=== PATIENT | male | born 1995 | race American Indian/Alaskan Native ===

== ENCOUNTER 2018-03-25 09:26 | Emergency (ER) | payer BC ==
[2018-03-25 09:35] VITALS: BP 142/48
--- NOTE | 2018-03-25 10:47 | Emergency Department Report ---
ED General Adult HPI - General Chief complaint: Medical Clearance Stated complaint: WEAKNESS, FATIGUE, HIV + Time Seen by Provider: 03/25/18 10:39 Source: patient Mode of arrival: Ambulatory Limitations: No Limitations - History of Present Illness Initial comments: Patient was diagnosed with HIV in 6 years ago. He has not been on any form of treatment because his partner wanted him to try homeopathic remedies. Patient has been feeling more fatigued and weak lately. He endorses a dark brown productive cough. He remembers a couple years ago by told him that his CD4 count was low. So, he comes to the ER today to get it checked out. Afebrile. Doesn't have any insurance. - Related Data Allergies Allergy/AdvReac Type Severity Reaction Status Date / Time lamotrigine [From Lamictal] Allergy Unknown Verified 03/25/18 09:35 ED Review of Systems ROS: Stated complaint: WEAKNESS, FATIGUE, HIV + Other details as noted in HPI Comment: All other systems reviewed and negative Constitutional: malaise, weakness Respiratory: cough Endocrine: denies: unexplained weight loss ED Past Medical Hx - Past Medical History Previous Medical History?: Yes Additional medical history: HIV - Social History Smoking Status: Current Every Day Smoker ED Physical Exam - General Limitations: No Limitations General appearance: alert, in no apparent distress - Head Head exam: Present: atraumatic, normocephalic - Eye Eye exam: Present: normal appearance - ENT ENT exam: Present: mucous membranes moist - Neck Neck exam: Present: normal inspection - Respiratory Respiratory exam: Present: normal lung sounds bilaterally. Absent: respiratory distress - Cardiovascular Cardiovascular Exam: Present: regular rate, normal rhythm, tachycardia. Absent : systolic murmur, diastolic murmur, rubs, gallop - GI/Abdominal GI/Abdominal exam: Present: soft, normal bowel sounds. Absent: tenderness - Rectal Rectal exam: Present: deferred - Extremities Exam Extremities exam: Present: normal inspection - Back Exam Back exam: Present: normal inspection - Neurological Exam Neurological exam: Present: alert, oriented X3 - Psychiatric Psychiatric exam: Present: normal affect, normal mood - Skin Skin exam: Present: warm, dry, intact, normal color. Absent: rash ED Course Vital Signs 03/25/18 03/25/18 09:31 10:49 Temperature 98.6 F Pulse Rate 126 H Respiratory 16 18 Rate Blood Pressure 142/48 O2 Sat by Pulse 96 Oximetry ED Medical Decision Making - Lab Data Result diagrams: 03/25/18 10:58 - Radiology Data Radiology results: report reviewed, image reviewed - Medical Decision Making 22-year-old male with past medical history of HIV presents to the ER for medical screening. Vital signs significant for heart rate of 126. This improved to 112 without intervention. Patient is well-appearing. History of HIV, but is not being followed by any physician at this point time and is not on any medication. Patient complained of a intermittent brown productive cough. Chest x-ray is unremarkable. Patient said that he was Toprol for his CD4 count was low. I am unable to order a CD4 count at this time. A screening CBC shows no evidence of leukopenia. Patient does have evidence of thrombocytopenia with a platelet count of 96,000. I would not recommend patient to the local health department for further HIV management. He has also been given referral information to the [facility]. Patient will be referred to the [facility] for further workup at this thrombocytopenia. Likely tachycardia is related to dehydration. Patient was given oral fluids in the ER for rehydration. - Differential Diagnosis sepsis, hiv, aids, PCP, dehydration, itp, ttp Critical care attestation.: If time is entered above; I have spent that time in minutes in the direct care of this critically ill patient, excluding procedure time. ED Disposition Clinical Impression: Dehydration, Thrombocytopenia Disposition: DC-01 TO HOME OR SELFCARE Is pt being admited?: No Condition: Stable Instructions: Dehydration (ED), Thrombocytopenia (ED) Additional Instructions: Please drink 1 bottle every 2 hours for the next 24 hours that you are awake. Follow up with the local health department or the [facility] for further management of your HIV. Follow up with the [facility] for further management of your low platelets. Referrals: PRIMARY CARE [Primary Care Provider] - 3-5 Days [facility] [Outside] - 3-5 Days
--- NOTE | 2018-03-25 11:03 | XRay Report ---
XRAY CHEST TWO VIEWS: 03/25/18 09:26:00 CLINICAL: Cough. COMPARISON: None FINDINGS: Normal heart and pulmonary vasculature. The lungs are normally expanded and clear except for a few tiny calcified granulomata. No airspace disease or pleural effusion.The bones and soft tissues are unremarkable. IMPRESSION: Old granulomatous disease.No acute cardiopulmonary process.
[2018-03-25 11:18] LABS: Basophils % (Auto) 0.2 % (0.0-1.8); Eosinophils # (Auto) 0.3 K/mm3 (0.0-0.4); Eosinophils % (Auto) 3.4 % (0.0-4.3); Hematocrit 44.9 % (35.5-45.6); Lymphocytes # (Auto) 1.5 K/mm3 (1.2-5.4); Lymphocytes % (Auto) 21.2 % (13.4-35.0); Mean Corpuscular HGB Conc 33 % (32-34); Mean Corpuscular Hemoglobin 28 pg (28-32); Mean Corpuscular Volume 85 fl (84-94); Monocytes # (Auto) 0.7 K/mm3 (0.0-0.8); Monocytes % (Auto) 9.4 % (0.0-7.3); Red Blood Count 5.28 M/mm3 (3.65-5.03); Red Cell Distribution Width 15.3 % (13.2-15.2)
[2018-03-25 11:19] LABS: Platelet Count 96 K/mm3 (140-440)
== END 2018-03-25 12:22 | disposition home or self-care (01) ==
LOC: ED 09:26
DX: E86.0 Dehydration (principal); D69.6 Thrombocytopenia, unspecified; F17.200 Nicotine dependence, unspecified, uncomplicated; Z88.8 Allergy status to other drugs, medicaments and biological substances
CPT/HCPCS: 36415; 71046; 85025

== ENCOUNTER 2018-03-25 19:40 | Emergency (ER) | payer BC ==
[2018-03-25 19:48] VITALS: BP 140/76
[2018-03-25 21:58] LABS: Amphetamine Screen,Urine PRESUMPTIVE NEGATIVE; Benzodiazepines Screen,Urine PRESUMPTIVE NEGATIVE; Cannabinoid Screen,Urine PRESUMPTIVE NEGATIVE; Cocaine Screen,Urine PRESUMPTIVE NEGATIVE; Methadone Screen,Urine PRESUMPTIVE NEGATIVE; Opiate Screen,Urine PRESUMPTIVE NEGATIVE
--- NOTE | 2018-03-26 00:47 | Emergency Department Report ---
ED Alcohol HPI - General Chief Complaint: Medical Clearance Stated Complaint: MEDICAL CLEARANCE Time Seen by Provider: 03/26/18 00:20 Source: patient Mode of arrival: Ambulatory Limitations: No Limitations - History of Present Illness Initial Comments: Patient sent here from [facility] for medical clearance after suspicion of alcohol intake while he was out on leave from facility, where he was currently in step down unit care after 50 days in inpatient facility under 1013 confinement for mental health issues. Patient reports that he did have half of a can of beer approximately 6 hours prior to this examination, but denies more significant alcohol intake, but denies any other recreational drug of abuse, reporting that he still feels he has the capability of drinking an alcoholic drink when he has the desire, since there is no prior history of abuse. Patient's hospitalization was for mental health issues, but he does not have a history of alcohol dependency, was not being treated for alcohol, but was simply referred because he had a presentation of alcohol, but this is generally not allowed at the facility. Patient denies other symptoms, has no physical complaints, no fever chills or diaphoresis, no falls or trauma, was not involved in any altercations, and has no other complaints. History is significant for seizure disorder, controlled with Depakote, with last seizure being 15 months earlier. He is also HIV positive. Time Since Last Drink: 6 -: hour(s) Chronic Alcohol Use: No Previous Visits for Alcohol Intoxication?: No Recent Trauma: No Associated Symptoms: denies other symptoms Treatments Prior to Arrival: none - Related Data Allergies Allergy/AdvReac Type Severity Reaction Status Date / Time lamotrigine [From Lamictal] Allergy Unknown Verified 03/25/18 20:03 ED Review of Systems ROS: Stated complaint: MEDICAL CLEARANCE Other details as noted in HPI Comment: All other systems reviewed and negative Constitutional: denies: chills, fever Eyes: denies: eye pain, eye discharge, vision change ENT: denies: ear pain, throat pain Respiratory: denies: cough, shortness of breath, wheezing Cardiovascular: denies: chest pain, palpitations Endocrine: no symptoms reported Gastrointestinal: denies: abdominal pain, nausea, diarrhea Genitourinary: denies: urgency, dysuria Musculoskeletal: denies: back pain, joint swelling, arthralgia Skin: denies: rash, lesions Neurological: denies: headache, weakness, paresthesias Psychiatric: denies: anxiety, depression Hematological/Lymphatic: denies: easy bleeding, easy bruising ED Past Medical Hx - Past Medical History Previous Medical History?: Yes Hx Seizures: Yes Hx HIV: Yes (last CD 240, not on any meds) Additional medical history: HIV - Social History Smoking Status: Current Every Day Smoker Substance Use Type: Alcohol ED Physical Exam - General Limitations: No Limitations General appearance: alert, in no apparent distress, other (does not appear intoxicated, awake and oriented, appropriate and cooperative) - Head Head exam: Present: atraumatic, normocephalic - Eye Eye exam: Present: PERRL, EOMI, nystagmus (0-1+ bilateral, bidirectional). Absent: periorbital swelling - ENT ENT exam: Present: normal exam, mucous membranes moist - Neck Neck exam: Present: normal inspection. Absent: tenderness, full ROM - Respiratory Respiratory exam: Present: normal lung sounds bilaterally. Absent: respiratory distress, wheezes, rales, rhonchi - Cardiovascular Cardiovascular Exam: Present: regular rate, normal rhythm. Absent: systolic murmur, diastolic murmur, rubs, gallop - GI/Abdominal GI/Abdominal exam: Present: soft, normal bowel sounds - Rectal Rectal exam: Present: deferred - Extremities Exam Extremities exam: Present: normal inspection - Back Exam Back exam: Present: normal inspection - Neurological Exam Neurological exam: Present: alert, oriented X3 - Psychiatric Psychiatric exam: Present: normal affect, normal mood. Absent: depressed, anxious, homicidal ideation, suicidal ideation - Skin Skin exam: Present: warm, dry, intact, normal color. Absent: rash ED Course Vital Signs 03/25/18 03/25/18 19:42 20:03 Temperature 37.0 C 37.0 C Pulse Rate 123 H 123 H Respiratory 18 18 Rate Blood Pressure 140/76 140/76 O2 Sat by Pulse 96 96 Oximetry ED Medical Decision Making - Medical Decision Making This patient is clinically stable, sent for medical evaluation, primarily because he is at a facility that monitors recreational drug use closely, but does not appear to be an active issue with this patient, who has no prior history of alcohol abuse, has a stable blood level within the legal limits, and is physically stable. He is cleared for return to his facility. Critical Care Time: No Critical care attestation.: If time is entered above; I have spent that time in minutes in the direct care of this critically ill patient, excluding procedure time. ED Disposition Clinical Impression: Medical clearance for psychiatric admission Disposition: DC-01 TO HOME OR SELFCARE Is pt being admited?: No Does the pt Need Aspirin: No Condition: Stable Additional Instructions: You're medically cleared for return to [facility]. Referrals: PRIMARY CARE, [Primary Care Provider] - 3-5 Days Time of Disposition: 00:55
== END 2018-03-26 01:06 | disposition home or self-care (01) ==
LOC: ED 19:40
DX: Z04.6 Encounter for general psychiatric examination, requested by authority (principal); Z88.8 Allergy status to other drugs, medicaments and biological substances; G40.909 Epilepsy, unspecified, not intractable, without status epilepticus; F17.200 Nicotine dependence, unspecified, uncomplicated
CPT/HCPCS: 36415; 80307; 99283; G0480; 80320

== ENCOUNTER 2018-11-21 01:36 | Emergency (ER) | payer BC ==
--- NOTE | 2018-11-21 03:29 | Emergency Department Report ---
ED Psych HPI - General Chief Complaint: Medical Clearance Stated Complaint: MED REFILL Time Seen by Provider: 11/21/18 03:18 Source: patient Mode of arrival: Ambulatory - History of Present Illness Initial Comments: Patient is 23 years old male with history of schizoaffective disorder. Patient stated that he came to the emergency room to reestablish his psychiatric medicine. Patient stated that he was out of his medicine for a period of time. Patient stated that he is taking Abilify 30 mg and Depakote 500 mg 3 times a day. Patient denied any suicidal or homicidal ideation. He denied any visual or auditory hallucination. MD Complaint: other - Related Data Allergies Allergy/AdvReac Type Severity Reaction Status Date / Time lamotrigine [From Lamictal] Allergy Unknown Verified 03/25/18 20:03 ED Review of Systems ROS: Stated complaint: MED REFILL Other details as noted in HPI Comment: All other systems reviewed and negative Constitutional: denies: chills, fever Respiratory: denies: cough Cardiovascular: denies: chest pain, palpitations, dyspnea on exertion Gastrointestinal: denies: abdominal pain, nausea, vomiting, diarrhea, constipation, hematemesis, hematochezia Musculoskeletal: denies: back pain Neurological: denies: headache, weakness Psychiatric: denies: anxiety, depression, auditory hallucinations, visual hallucinations, homicidal thoughts, suicidal thoughts ED Past Medical Hx - Past Medical History Previous Medical History?: Yes Hx Seizures: Yes Hx Psychiatric Treatment: Yes (Schizo) Hx HIV: Yes (last CD 240, not on any meds) Additional medical history: HIV. neuropathy - Surgical History Past Surgical History?: No - Social History Smoking Status: Current Every Day Smoker Substance Use Type: None ED Physical Exam - General Limitations: No Limitations General appearance: alert, in no apparent distress - Head Head exam: Present: atraumatic, normocephalic, normal inspection - Eye Eye exam: Present: normal appearance, PERRL - ENT ENT exam: Present: normal exam, normal orophraynx, mucous membranes moist - Neck Neck exam: Present: normal inspection, full ROM. Absent: tenderness, meningismus, lymphadenopathy, thyromegaly - Respiratory Respiratory exam: Present: normal lung sounds bilaterally - Cardiovascular Cardiovascular Exam: Present: regular rate, normal rhythm, normal heart sounds - GI/Abdominal GI/Abdominal exam: Present: soft, normal bowel sounds. Absent: distended, tenderness, guarding, rebound, rigid, hypoactive bowel sounds, organomegaly, mass, bruit, pulsatile mass, hernia - Extremities Exam Extremities exam: Present: normal inspection, full ROM, normal capillary refill. Absent: pedal edema, calf tenderness - Back Exam Back exam: Present: normal inspection, full ROM. Absent: tenderness, CVA tenderness (R), CVA tenderness (L), muscle spasm, paraspinal tenderness, vertebral tenderness - Neurological Exam Neurological exam: Present: alert, oriented X3, CN II-XII intact, normal gait, reflexes normal - Psychiatric Psychiatric exam: Present: normal mood - Skin Skin exam: Present: warm, intact, normal color ED Course Vital Signs 11/21/18 01:38 Temperature 97.5 F L Critical care attestation.: If time is entered above; I have spent that time in minutes in the direct care of this critically ill patient, excluding procedure time. ED Disposition Clinical Impression: Schizoaffective disorder Disposition: DC-01 TO HOME OR SELFCARE Is pt being admited?: No Condition: Stable Instructions: Schizoaffective Disorder (ED) Referrals[facility] MD TY [Primary Care Provider] - 3-5 Days
[2018-11-21 04:21] LABS: Basophils % (Auto) 0.1 % (0.0-1.8); Eosinophils # (Auto) 0.1 K/mm3 (0.0-0.4); Eosinophils % (Auto) 1.9 % (0.0-4.3); Hematocrit 41.5 % (35.5-45.6); Hemoglobin 14.2 gm/dl (11.8-15.2); Lymphocytes # (Auto) 1.8 K/mm3 (1.2-5.4); Lymphocytes % (Auto) 29.1 % (13.4-35.0); Mean Corpuscular HGB Conc 34 % (32-34); Mean Corpuscular Volume 90 fl (84-94); Monocytes # (Auto) 0.6 K/mm3 (0.0-0.8); Monocytes % (Auto) 9.7 % (0.0-7.3); Red Blood Count 4.62 M/mm3 (3.65-5.03); Red Cell Distribution Width 15.3 % (13.2-15.2)
[2018-11-21 04:34] LABS: Platelet Count 99 K/mm3 (140-440)
[2018-11-21 04:38] LABS: Bilirubin,Urine NEG (Negative); Blood,Urine NEG (Negative); Color,Urine Yellow (Yellow); Hyaline Casts,Urine 1 /LPF; Mucus,Urine 2+ /HPF
[2018-11-21 04:38] LABS: BUN/Creatinine Ratio 13; Blood Urea Nitrogen 13 mg/dL (9-20); Calcium 8.9 mg/dL (8.4-10.2); Hemolysis Index 13
[2018-11-21 04:46] LABS: Benzodiazepines Screen,Urine PRESUMPTIVE NEGATIVE; Cocaine Screen,Urine PRESUMPTIVE NEGATIVE; Methadone Screen,Urine PRESUMPTIVE NEGATIVE; Opiate Screen,Urine PRESUMPTIVE NEGATIVE
[2018-11-21 05:06] LABS: Amphetamine Screen,Urine PRESUMPTIVE POSITIVE; Cannabinoid Screen,Urine PRESUMPTIVE POSITIVE
== END 2018-11-21 11:13 | disposition home or self-care (01) ==
LOC: ED 01:36 → EEVIPCON 01:36 → ED 11:13
DX: F25.9 Schizoaffective disorder, unspecified (principal); Z76.0 Encounter for issue of repeat prescription
CPT/HCPCS: 36415; 80048; 80307; 81001; 85025; 99283; G0480; 80320

== ENCOUNTER 2018-12-06 18:42 | Emergency (ER) | payer BC ==
[2018-12-06 19:13] LABS: Basophils % (Auto) 0.3 % (0.0-1.8); Eosinophils % (Auto) 0.4 % (0.0-4.3); Hematocrit 51.6 % (35.5-45.6); Hemoglobin 16.9 gm/dl (11.8-15.2); Lymphocytes # (Auto) 1.5 K/mm3 (1.2-5.4); Mean Corpuscular HGB Conc 33 % (32-34); Mean Corpuscular Volume 91 fl (84-94); Monocytes # (Auto) 0.5 K/mm3 (0.0-0.8); Monocytes % (Auto) 7.4 % (0.0-7.3); Platelet Count 109 K/mm3 (140-440); Red Blood Count 5.66 M/mm3 (3.65-5.03)
[2018-12-06 19:31] LABS: BUN/Creatinine Ratio 12; Blood Urea Nitrogen 11 mg/dL (9-20); Calcium 9.1 mg/dL (8.4-10.2); Hemolysis Index 184
[2018-12-06 20:57] VITALS: BP 118/78
--- NOTE | 2018-12-06 21:16 | Emergency Department Report ---
ED Psych HPI - General Chief Complaint: Psych Stated Complaint: PSYCH/GENERAL SICKNESS/TREMBLES Time Seen by Provider: 12/06/18 21:00 Source: patient Mode of arrival: Ambulatory - History of Present Illness Initial Comments: Patient is 23 years old male with history of schizoaffective disorder and bipolar disorder. Patient just released from senior living. His mother called and stated that patient needed to be evaluated for psychiatric admission due to his acute psychosis. Patient with obvious visual hallucination, tactile hallucination, racing thoughts. Patient was in senior living for trespassing. Patient wanted to set his home on fire. MD Complaint: altered mental status Associated Psychiatric Symptoms: racing thoughts, auditory hallucinations, visual hallucinations Quality: constant Context: not taking psychiatric Treatments Prior to Arrival: none - Related Data Home Medications Medication Instructions Recorded Confirmed Last Taken ARIPiprazole [Abilify] 30 mg PO DAILY 12/06/18 12/06/18 12/05/18 Divalproex Sodium [Depakote] 1,500 mg PO TID 12/06/18 12/06/18 12/05/18 Gabapentin [Neurontin] 900 mg PO BID 12/06/18 12/06/18 12/05/18 Allergies Allergy/AdvReac Type Severity Reaction Status Date / Time lamotrigine [From Lamictal] Allergy Unknown Verified 03/25/18 20:03 ED Review of Systems ROS: Stated complaint: PSYCH/GENERAL SICKNESS/TREMBLES Other details as noted in HPI Comment: All other systems reviewed and negative Constitutional: denies: chills, diaphoresis, fever, malaise, weakness Respiratory: denies: cough, orthopnea, shortness of breath, SOB with exertion, SOB at rest, wheezing Cardiovascular: denies: chest pain, palpitations, dyspnea on exertion Gastrointestinal: denies: abdominal pain, nausea, vomiting, diarrhea, constipation, hematemesis, hematochezia Musculoskeletal: denies: back pain Neurological: denies: headache, weakness ED Past Medical Hx - Past Medical History Previous Medical History?: Yes Hx Seizures: Yes Hx Psychiatric Treatment: Yes (Schizo) Hx HIV: Yes (last CD 240, not on any meds) Additional medical history: HIV. neuropathy - Surgical History Past Surgical History?: No - Social History Smoking Status: Current Every Day Smoker Substance Use Type: None - Medications Home Medications: Home Medications Medication Instructions Recorded Confirmed Last Taken Type ARIPiprazole [Abilify] 30 mg PO DAILY 12/06/18 12/06/18 12/05/18 History Divalproex Sodium [Depakote] 1,500 mg PO TID 12/06/18 12/06/18 12/05/18 History Gabapentin [Neurontin] 900 mg PO BID 12/06/18 12/06/18 12/05/18 History ED Physical Exam - General Limitations: No Limitations General appearance: alert, in no apparent distress - Head Head exam: Present: atraumatic, normocephalic, normal inspection - Eye Eye exam: Present: normal appearance, PERRL - ENT ENT exam: Present: normal exam, normal orophraynx, mucous membranes moist - Neck Neck exam: Present: normal inspection, full ROM. Absent: tenderness, meningismus, lymphadenopathy, thyromegaly - Respiratory Respiratory exam: Present: normal lung sounds bilaterally. Absent: respiratory distress, wheezes, rales, rhonchi, chest wall tenderness, accessory muscle use, decreased breath sounds, prolonged expiratory - Cardiovascular Cardiovascular Exam: Present: regular rate, normal rhythm, normal heart sounds - GI/Abdominal GI/Abdominal exam: Present: soft, normal bowel sounds. Absent: distended, t enderness, guarding, rebound, rigid, organomegaly, mass, bruit, pulsatile mass, hernia - Extremities Exam Extremities exam: Present: normal inspection, full ROM, normal capillary refill - Back Exam Back exam: Present: normal inspection, full ROM. Absent: CVA tenderness (R), CVA tenderness (L), muscle spasm, paraspinal tenderness, vertebral tenderness - Neurological Exam Neurological exam: Present: alert, oriented X3, CN II-XII intact, normal gait, reflexes normal - Skin Skin exam: Present: warm, intact, normal color ED Course Vital Signs 12/06/18 19:12 Temperature 98.5 F Pulse Rate 91 H Respiratory 18 Rate Blood Pressure 118/78 [Left] O2 Sat by Pulse 99 Oximetry ED Medical Decision Making - Lab Data Result diagrams: 12/06/18 19:00 12/06/18 19:00 Critical care attestation.: If time is entered above; I have spent that time in minutes in the direct care of this critically ill patient, excluding procedure time. ED Disposition Clinical Impression: Acute psychosis Disposition: DC-01 TO HOME OR SELFCARE Is pt being admited?: No Condition: Stable Referrals: MARION FLOYD MD [Primary Care Provider] - 3-5 Days
[2018-12-06 21:32] LABS: Bilirubin,Urine NEG (Negative); Blood,Urine NEG (Negative); Color,Urine Amber (Yellow); Mucus,Urine 3+ /HPF
[2018-12-06 21:34] LABS: Amphetamine Screen,Urine PRESUMPTIVE NEGATIVE; Benzodiazepines Screen,Urine PRESUMPTIVE NEGATIVE; Cocaine Screen,Urine PRESUMPTIVE NEGATIVE; Methadone Screen,Urine PRESUMPTIVE NEGATIVE; Opiate Screen,Urine PRESUMPTIVE NEGATIVE
[2018-12-06 21:53] LABS: Cannabinoid Screen,Urine PRESUMPTIVE POSITIVE
== END 2018-12-07 00:44 | disposition home or self-care (01) ==
LOC: ED 18:42
DX: F23 Brief psychotic disorder (principal); F20.89 Other schizophrenia; F17.200 Nicotine dependence, unspecified, uncomplicated; Z88.8 Allergy status to other drugs, medicaments and biological substances
CPT/HCPCS: 36415; 80048; 80164; 80307; 81001; 82550; 85025; 99285; G0480; 80320

== ENCOUNTER 2018-12-30 23:02 | Emergency (ER) | payer BC ==
[2018-12-30 23:42] VITALS: BP 125/92
[2018-12-30 23:59] LABS: BUN/Creatinine Ratio 12; Blood Urea Nitrogen 12 mg/dL (9-20); Calcium 9.1 mg/dL (8.4-10.2); Hemolysis Index 22
[2018-12-31 00:30] LABS: Basophils % (Auto) 0.2 % (0.0-1.8); Eosinophils # (Auto) 0.2 K/mm3 (0.0-0.4); Eosinophils % (Auto) 1.5 % (0.0-4.3); Hematocrit 44.3 % (35.5-45.6); Hemoglobin 14.6 gm/dl (11.8-15.2); Lymphocytes # (Auto) 4.1 K/mm3 (1.2-5.4); Lymphocytes % (Auto) 30.4 % (13.4-35.0); Mean Corpuscular HGB Conc 33 % (32-34); Mean Corpuscular Volume 89 fl (84-94); Monocytes # (Auto) 1.4 K/mm3 (0.0-0.8); Monocytes % (Auto) 10.6 % (0.0-7.3); Platelet Count 179 K/mm3 (140-440); Red Blood Count 4.98 M/mm3 (3.65-5.03); Red Cell Distribution Width 15.3 % (13.2-15.2)
--- NOTE | 2018-12-31 01:50 | Emergency Department Report ---
Minor Respiratory - HPI Chief Complaint: Upper Respiratory Infection Stated Complaint: COLD/FLU SX/CRACKING FEET Time Seen by Provider: 12/31/18 01:44 Duration: 4 Days Severity: moderate Minor Respiratory: Yes Able to Tolerate Fluids, Yes Cough, No Rhinorrhea, No Sore Throat, No Ear Pain, No Sick Contacts, No Hemoptysis, No Chest Pain, No Shortness of Breath, No Fever Other History: 23-year-old -Citizen Of [place] male with a past medical history of HIV schizophrenia and neuropathy comes in today complaining of a cough and cracking of his feet for the last 4 days. She reports sweats and chills but denies any fever. Patient reports that he had just started back on his schizophrenia medication he is currently not on any HIV medication in the last 4 months. Patient reports he has been in and out of homelessness and has been staying at hotels. She is requesting a referral to our neurologists as he has a history of seizures and not sure if he's been having seizures are not since he has been wetting the bed. Patient reportedly is on Keppra and Depakote. ED Review of Systems ROS: Stated complaint: COLD/FLU SX/CRACKING FEET Other details as noted in HPI Constitutional: chills. denies: fever ENT: congestion. denies: ear pain, throat pain Respiratory: cough Cardiovascular: denies: chest pain, palpitations Endocrine: no symptoms reported Gastrointestinal: denies: abdominal pain, nausea, diarrhea Genitourinary: other (her Gaurav incontinence) Musculoskeletal: denies: back pain, joint swelling, arthralgia Skin: lesions (on feet) Neurological: denies: headache, weakness, paresthesias Psychiatric: anxiety, depression Hematological/Lymphatic: denies: easy bleeding, easy bruising ED Past Medical Hx - Past Medical History Previous Medical History?: Yes Hx Seizures: Yes Hx Psychiatric Treatment: Yes (Schizoaffective) Hx HIV: Yes (last CD 240, not on any meds) Additional medical history: HIV. neuropathy - Surgical History Past Surgical History?: Yes Additional Surgical History: TBI - Social History Smoking Status: Never Smoker Substance Use Type: Alcohol, Cocaine, Marijuana, Methamphetamines - Medications Home Medications: Home Medications Medication Instructions Recorded Confirmed Last Taken Type ARIPiprazole [Abilify] 30 mg PO DAILY 12/06/18 12/06/18 12/05/18 History Divalproex Sodium [Depakote] 1,500 mg PO TID 12/06/18 12/06/18 12/05/18 History Gabapentin [Neurontin] 900 mg PO BID 12/06/18 12/06/18 12/05/18 History Petrolatum,White/Lanolin [[facility] 1 applic TP TID #42.5 oint...g. 12/31/18 Unknown Rx Multi-Purpose Ointment] Sulfamethoxazole/Trimethoprim 1 each PO BID #20 tablet 12/31/18 Unknown Rx [Bactrim Ds Tablet] Minor Respiratory Exam - Exam General: Vital signs noted. No distress. Alert and acting appropriately. Neurologic: Alert and oriented, no deficits. Musculoskeletal: Unremarkable. ED Course Vital Signs 12/30/18 23:16 Temperature 98.5 F Pulse Rate 121 H Respiratory 20 Rate Blood Pressure 125/92 O2 Sat by Pulse 99 Oximetry ED Medical Decision Making - Lab Data Result diagrams: 12/30/18 23:38 12/30/18 23:38 - Radiology Data Radiology results: report reviewed Patient: AMRITA YOO MR#: [id number] : 1995 Acct:[id number] Age/Sex: 23 / M ADM Date: 12/30/18 Loc: ED Attending Dr: Ordering Physician: MOE PAT MD Date of Service: 12/30/18 Procedure(s): XR chest 1V ap Accession Number(s): [id number] cc: MOE PAT MD Fluoro Time In Minutes: PROCEDURE: XR CHEST 1V AP TECHNIQUE: Chest radiograph single view. HISTORY: Chest Pain COMPARISONS: April 24, 2018 . FINDINGS: Heart: Normal. Mediastinum/Vessels: Normal. Lungs/Pleural space: Normal. Bony thorax: No acute osseous abnormality. Life support devices: None. IMPRESSION: No acute cardiopulmonary abnormality. This document is electronically signed by Sebastian Monaco MD., December 31 2018 02:17:06 AM ET Transcribed By: CO Dictated By: SEBASTIAN MONACO MD Electronically Authenticated By: SEBASTIAN MONACO MD Signed Date/Time: 12/31/18 0219 DD/ 0006 - Medical Decision Making Patient has been evaluated by this provider in [facility]. Chest x-ray shows normal examination Discussed patient to follow-up with Dr. amaya for his HIV, neurologist for his seizure disorders. I will place patient on Bactrim double strength 1 tablet by mouth twice a day since he is immune compromised and comes in with a cough and has not been on medication for his HIV for the last 4 months. Critical care attestation.: If time is entered above; I have spent that time in minutes in the direct care of this critically ill patient, excluding procedure time. ED Disposition Clinical Impression: Cough, HIV disease Disposition: - TO HOME OR SELFCARE Is pt being admited?: No Does the pt Need Aspirin: No Condition: Stable Instructions: Upper Respiratory Infection (ED) Additional Instructions: Please complete antibiotics as prescribed. Use your Vaseline/petroleum jelly on both her feet or E times a day and follow-up with this but specialist. Please be sure to take all your chronic medications as prescribed. I would like for you to follow up with a neurologist clear history of seizures as well as Dr. amaya infectious disease. Immune compromise diagnosis. Prescriptions: Sulfamethoxazole/Trimethoprim [Bactrim Ds Tablet] 1 each PO BID #20 tablet Petrolatum,White/Lanolin [[facility] Multi-Purpose Ointment] 1 applic TP TID #42.5 oint...g. Referrals: PRIMARY CAREMD [Primary Care Provider] - 3-5 Days CJ AMAYA MD [Staff Physician] - 3-5 Days [facility] [Provider Group] - 3-5 Days
--- NOTE | 2018-12-31 02:19 | XRay Report ---
PROCEDURE: XR CHEST 1V AP TECHNIQUE: Chest radiograph single view. HISTORY: Chest Pain COMPARISONS: April 24, 2018 . FINDINGS: Heart: Normal. Mediastinum/Vessels: Normal. Lungs/Pleural space: Normal. Bony thorax: No acute osseous abnormality. Life support devices: None. IMPRESSION: No acute cardiopulmonary abnormality. This document is electronically signed by Sebastian Shannon MD., December 31 2018 02:17:06 AM ET
== END 2018-12-31 02:30 | disposition home or self-care (01) ==
LOC: ED 23:02
DX: R05 Cough (principal); R61 Generalized hyperhidrosis; R68.83 Chills (without fever); B20 Human immunodeficiency virus [HIV] disease; F20.9 Schizophrenia, unspecified; F15.90 Other stimulant use, unspecified, uncomplicated; F12.90 Cannabis use, unspecified, uncomplicated; G62.9 Polyneuropathy, unspecified; Z88.8 Allergy status to other drugs, medicaments and biological substances
CPT/HCPCS: 36415; 71045; 80048; 85025; 99284

== ENCOUNTER 2019-01-01 12:15 | Emergency (ER) | payer BC ==
--- NOTE | 2019-01-01 12:27 | Emergency Department Report ---
Blank Doc - Documentation Documentation: This is a 23-year-old male that presents with URI symptoms. Was seen 2 days ago and was given prescrption but did not fill it. Is requesting for healthcare social worker for funding for medications. This initial assessment/diagnostic orders/clinical plan/treatment(s) is/are subject to change based on patient's health status, clinical progression and re- assessment by fellow clinical providers in the ED. Further treatment and workup at subsequent clinical providers discretion. Patient/guardians urged not to elope from the ED as their condition may be serious if not clinically assessed and managed. Initial orders include: 1- Patient sent to [facility] for further evaluation and treatment 2- bilingual social worker for consult
[2019-01-01 12:28] VITALS: BP 125/83
--- NOTE | 2019-01-01 18:09 | Emergency Department Report ---
Chief Complaint: Upper Respiratory Infection Stated Complaint: POSS UPPER RESPIRATORY/MED REFILL Time Seen by Provider: 01/01/19 12:25 - HPI History of Present Illness: This is a 23-year-old male who returns to the ED seeking help for his medication refill. Patient states he is unable to afford his medications that he was prescribed 2 days ago. Patient states having similar symptoms that started days . Patient is not exhibiting any new symptoms at this time. - ROS Review of Systems: As noted in HPI. Denies all systems - Exam Vital Signs: Vital Signs 01/01/19 12:24 Temperature 98.2 F Pulse Rate 120 H Respiratory 18 Rate Blood Pressure 125/83 O2 Sat by Pulse 99 Oximetry Physical Exam: Patient is in no acute distress. Patient is alert and active 3. He is able to communicate in clear sentences, no neurological deficit. Lung sounds clear bilaterally. MSE screening note: Focused history and physical exam performed. Due to findings the following was ordered: ED Medical Decision Making - Medical Decision Making 23-year-old male presents for medication refill Discussed with patient that he can use [facility] that has Bactrim on their free least. Patient told to call police to get his medication for free. I have also given patient's a couple of good iris cards to help with this plan of medication he needs. Patient understands instructions and states will follow. ED Disposition for MSE Clinical Impression: Medication refill Disposition: DC-01 TO HOME OR SELFCARE Is pt being admited?: No Does the pt Need Aspirin: No Condition: Stable Additional Instructions: Make sure to follow up with the primary care physician as discussed. Take all your medications as you've been prescribed. If you have any worsening symptoms or develop new symptoms please return to ED immediately. Prescriptions: Sulfamethoxazole/Trimethoprim [Bactrim Ds Tablet] 1 each PO BID #20 tablet Petrolatum,White/Lanolin [[facility] Multi-Purpose Ointment] 1 applic TP TID #42.5 oint...g. Referrals: [facility] MD TY [Primary Care Provider] - 3-5 Days Forms: Work/School Release Form(ED) Time of Disposition: 18:10
== END 2019-01-01 18:24 | disposition home or self-care (01) ==
LOC: ED 12:15
DX: J06.9 Acute upper respiratory infection, unspecified (principal); Z76.0 Encounter for issue of repeat prescription
CPT/HCPCS: 99282

== ENCOUNTER 2019-01-03 02:38 | Emergency (ER) | payer BC ==
[2019-01-03 03:29] VITALS: BP 128/80
[2019-01-03 03:33] LABS: Basophils % (Auto) 0.3 % (0.0-1.8); Eosinophils # (Auto) 0.1 K/mm3 (0.0-0.4); Eosinophils % (Auto) 1.5 % (0.0-4.3); Hematocrit 40.3 % (35.5-45.6); Hemoglobin 13.2 gm/dl (11.8-15.2); Lymphocytes # (Auto) 3.4 K/mm3 (1.2-5.4); Lymphocytes % (Auto) 43.4 % (13.4-35.0); Mean Corpuscular HGB Conc 33 % (32-34); Mean Corpuscular Volume 90 fl (84-94); Monocytes # (Auto) 0.8 K/mm3 (0.0-0.8); Monocytes % (Auto) 10.7 % (0.0-7.3); Platelet Count 142 K/mm3 (140-440); Red Blood Count 4.51 M/mm3 (3.65-5.03); Red Cell Distribution Width 14.6 % (13.2-15.2)
[2019-01-03 03:56] LABS: BUN/Creatinine Ratio 6; Blood Urea Nitrogen 5 mg/dL (9-20); Calcium 8.8 mg/dL (8.4-10.2); Hemolysis Index 17
[2019-01-03 04:23] LABS: Bilirubin,Urine NEG (Negative); Blood,Urine NEG (Negative); Color,Urine Yellow (Yellow); Mucus,Urine FEW /HPF; Protein,Urine <15 mg/dL mg/dL (Negative)
[2019-01-03 04:31] LABS: Amphetamine Screen,Urine PRESUMPTIVE NEGATIVE; Benzodiazepines Screen,Urine PRESUMPTIVE NEGATIVE; Cannabinoid Screen,Urine PRESUMPTIVE NEGATIVE; Cocaine Screen,Urine PRESUMPTIVE NEGATIVE; Methadone Screen,Urine PRESUMPTIVE NEGATIVE; Opiate Screen,Urine PRESUMPTIVE NEGATIVE
[2019-01-03] MEDS ORDERED: K-DUR PO ONE (04:43)
--- NOTE | 2019-01-03 06:44 | Emergency Department Report ---
HPI - General Chief Complaint: Psych Time Seen by Provider: 01/03/19 06:07 - HPI HPI: 23-year-old -[place] male presents to the emergency department with complaint of having some episodes of jack for the past 24+ hours. He thinks that he has been set off by the copious amount of energy drinks and caffeine that he has been having. 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 He says occasionally he will have some hallucinations. Currently he just feels a "buzz" and he denies any suicidal or homicidal ideations. [facility] is [facility]30 AM until 3:30 PM each day. He has not been getting much sleep and therefore starts using the caffeinated products. ED Past Medical Hx - Past Medical History Previous Medical History?: Yes Hx Seizures: Yes Hx Psychiatric Treatment: Yes (Schizoaffective,drug abuse) Hx HIV: Yes (last , not on any meds) Additional medical history: HIV. neuropathy - Surgical History Additional Surgical History: TBI - Social History Smoking Status: Never Smoker Substance Use Type: Alcohol, Cocaine, Heroin, Marijuana, Methamphetamines - Medications Home Medications: Home Medications Medication Instructions Recorded Confirmed Last Taken Type ARIPiprazole [Abilify] 30 mg PO DAILY 12/06/18 12/06/18 12/05/18 History Divalproex Sodium [Depakote] 1,500 mg PO TID 12/06/18 12/06/18 12/05/18 History Gabapentin [Neurontin] 900 mg PO BID 12/06/18 12/06/18 12/05/18 History Petrolatum,White/Lanolin [[facility] 1 applic TP TID #42.5 oint...g. 01/01/19 Unknown Rx Multi-Purpose Ointment] Sulfamethoxazole/Trimethoprim 1 each PO BID #20 tablet 01/01/19 Unknown Rx [Bactrim Ds Tablet] ED Review of Systems ROS: Stated complaint: PAIN MH Other details as noted in HPI Comment: All other systems reviewed and negative Constitutional: denies: chills, fever Eyes: denies: eye pain, vision change ENT: denies: ear pain, throat pain Respiratory: denies: cough, shortness of breath Cardiovascular: denies: chest pain, palpitations Gastrointestinal: denies: abdominal pain, vomiting Genitourinary: denies: urgency, dysuria Musculoskeletal: denies: back pain, arthralgia Skin: denies: rash, lesions Neurological: denies: headache, numbness Psychiatric: denies: homicidal thoughts, suicidal thoughts Physical Exam - Physical Exam Vital Signs: Vital Signs 01/03/19 01/03/19 02:45 03:28 Temperature 98.1 F 98.9 F Pulse Rate 118 H 113 H Respiratory 20 18 Rate Blood Pressure 148/84 Blood Pressure 128/80 [Right] O2 Sat by Pulse 100 96 Oximetry Physical Exam: GENERAL: The patient is well-developed well-nourished. HEENT: Normocephalic. Atraumatic. Patient has moist mucous membranes. EYES: Extraocular motions are intact. NECK: Supple. Trachea is midline. CHEST/LUNGS: Clear to auscultation. There is no respiratory distress noted. HEART/CARDIOVASCULAR: Regular. There is mild tachycardia. There is no obvious murmur. ABDOMEN: Abdomen is soft, nontender. Patient has normal bowel sounds. There is no abdominal distention. SKIN: Skin is warm and dry. NEURO: The patient is awake, alert, and oriented. The patient is cooperative. The patient has no focal neurologic deficits. The patient has normal speech. MUSCULOSKELETAL: There is no tenderness or deformity. There is no limitation range of motion. There is no evidence of acute injury. PSYCHIATRIC: Patient has slightly pressured speech but otherwise is cooperative and appropriate. ED Course Vital Signs 01/03/19 01/03/19 02:45 03:28 Temperature 98.1 F 98.9 F Pulse Rate 118 H 113 H Respiratory 20 18 Rate Blood Pressure 148/84 Blood Pressure 128/80 [Right] O2 Sat by Pulse 100 96 Oximetry ED Medical Decision Making - Lab Data Result diagrams: 01/03/19 02:54 01/03/19 02:54 - Medical Decision Making This patient presents to the emergency department with the complaint of some manic behavior over the past 24-48 hours. He admits that it may be due to heavy caffeine intake but he denies any illicit drug use recently. The patient started getting psychiatric treatment and a partial hospitalization program at [facility]. He denies any suicidal or homicidal ideations or any current hallucinations. He does not appear to meet criteria to meet a 1013 or 14 inpatient involuntary psychiatric admission. He was seen by the psychiatric secure software assessor, Adryan, who agrees with this. The patient has been instructed to return to the emergency department for any worsening of his symptoms, thoughts of harming himself or others, or if any acute distress. - Differential Diagnosis bipolar disorder, schizophrenia, schizoaffective, substance abuse Critical Care Time: No Critical care attestation.: If time is entered above; I have spent that time in minutes in the direct care of this critically ill patient, excluding procedure time. ED Disposition Clinical Impression: Manic episode, History of schizoaffective disorder, History of bipolar disorder Disposition: DC-01 TO HOME OR SELFCARE Is pt being admited?: No Condition: Stable Instructions: Bipolar Disorder (ED), Schizoaffective Disorder (ED) Additional Instructions: Please continue your partial hospitalization program. Try to stay away from energy drinks and caffeinated products. Return to the emergency Department with any worsening of your symptoms, thoughts of harming yourself or others, any acute distress. Continue taking your medications as prescribed. Referrals: ABDIAS Ortega [Provider Group] - [facility] Time of Disposition: 07:09
== END 2019-01-03 07:00 | disposition home or self-care (01) ==
LOC: ED 02:38
DX: F30.9 Manic episode, unspecified (principal); F25.9 Schizoaffective disorder, unspecified; F14.10 Cocaine abuse, uncomplicated; F12.10 Cannabis abuse, uncomplicated; F11.20 Opioid dependence, uncomplicated; F15.10 Other stimulant abuse, uncomplicated; Z88.8 Allergy status to other drugs, medicaments and biological substances
CPT/HCPCS: 36415; 80048; 80307; 81001; 83735; 85025; 99284; G0480; 80320

== ENCOUNTER 2019-01-05 02:06 | Emergency (ER) | payer BC ==
[2019-01-05 02:17] VITALS: BP 128/83
--- NOTE | 2019-01-05 03:35 | Emergency Department Report ---
ED Extremity Problem HPI - General Chief complaint: Extremity Injury, Lower Stated complaint: PAIN IN FEET/LOWER EXTREMITIES, THUY Time Seen by Provider: 01/05/19 03:35 Source: patient Mode of arrival: Ambulatory Limitations: No Limitations - History of Present Illness Severity scale (0 -10): 7 - Related Data Home Medications Medication Instructions Recorded Confirmed Last Taken ARIPiprazole [Abilify] 30 mg PO DAILY 12/06/18 12/06/18 12/05/18 Divalproex Sodium [Depakote] 1,500 mg PO TID 12/06/18 12/06/18 12/05/18 Gabapentin [Neurontin] 900 mg PO BID 12/06/18 12/06/18 12/05/18 Previous Rx's Medication Instructions Recorded Last Taken Type Petrolatum,White/Lanolin [[facility] 1 applic TP TID #42.5 oint...g. 01/01/19 Unknown Rx Multi-Purpose Ointment] Sulfamethoxazole/Trimethoprim 1 each PO BID #20 tablet 01/01/19 Unknown Rx [Bactrim Ds Tablet] Allergies Allergy/AdvReac Type Severity Reaction Status Date / Time lamotrigine [From Lamictal] Allergy Unknown Verified 03/25/18 20:03 ED Review of Systems ROS: Stated complaint: PAIN IN FEET/LOWER EXTREMITIES, THUY Other details as noted in HPI ED Past Medical Hx - Past Medical History Previous Medical History?: Yes Hx Seizures: Yes Hx Psychiatric Treatment: Yes (Schizoaffective,drug abuse) Hx HIV: Yes (last CD 24, not on any meds) Additional medical history: HIV. neuropathy - Surgical History Past Surgical History?: Yes Additional Surgical History: TBI - Social History Smoking Status: Never Smoker Substance Use Type: None - Medications Home Medications: Home Medications Medication Instructions Recorded Confirmed Last Taken Type ARIPiprazole [Abilify] 30 mg PO DAILY 12/06/18 12/06/18 12/05/18 History Divalproex Sodium [Depakote] 1,500 mg PO TID 12/06/18 12/06/18 12/05/18 History Gabapentin [Neurontin] 900 mg PO BID 12/06/18 12/06/18 12/05/18 History Petrolatum,White/Lanolin [[facility] 1 applic TP TID #42.5 oint...g. 01/01/19 Unknown Rx Multi-Purpose Ointment] Sulfamethoxazole/Trimethoprim 1 each PO BID #20 tablet 01/01/19 Unknown Rx [Bactrim Ds Tablet] ED Physical Exam - General Limitations: No Limitations ED Course Vital Signs 01/05/19 02:15 Temperature 98.5 F Pulse Rate 100 H Respiratory 16 Rate Blood Pressure 128/83 O2 Sat by Pulse 97 Oximetry Critical care attestation.: If time is entered above; I have spent that time in minutes in the direct care of this critically ill patient, excluding procedure time. ED Disposition Condition: Stable Referrals: DASHA ZEPEDA MD [Primary Care Provider] - 3-5 Days
== END 2019-01-05 03:40 | disposition left against medical advice (07) ==
LOC: ED 02:06
DX: M79.673 Pain in unspecified foot (principal); Z53.21 Procedure and treatment not carried out due to patient leaving prior to being seen by health care provider

== ENCOUNTER 2019-03-08 00:07 | Emergency (ER) | payer BC, MEDICAID ==
[2019-03-08 01:16] LABS: Basophils % (Auto) 0.2 % (0.0-1.8); Eosinophils # (Auto) 0.1 K/mm3 (0.0-0.4); Eosinophils % (Auto) 1.8 % (0.0-4.3); Hemoglobin 15.1 gm/dl (11.8-15.2); Lymphocytes # (Auto) 2.2 K/mm3 (1.2-5.4); Lymphocytes % (Auto) 41.8 % (13.4-35.0); Mean Corpuscular HGB Conc 34 % (32-34); Mean Corpuscular Volume 88 fl (84-94); Monocytes # (Auto) 0.5 K/mm3 (0.0-0.8); Monocytes % (Auto) 8.5 % (0.0-7.3); Platelet Count 132 K/mm3 (140-440); Red Blood Count 5.13 M/mm3 (3.65-5.03); Red Cell Distribution Width 13.9 % (13.2-15.2)
--- NOTE | 2019-03-08 01:32 | XRay Report ---
EXAM: XR CHEST ROUTINE 2V HISTORY: cough TECHNIQUE: PA and lateral chest x-ray dated March 08, 2019 at 12:52 AM. COMPARISON: None available. FINDINGS: The heart size and mediastinum are within normal limits. The lung jacques and costophrenic angles are clear. There is no acute parenchymal infiltrate, pleural effusion, or pneumothorax seen. The visua lized bony structures are within normal limits. IMPRESSION: 1. No evidence for acute cardiopulmonary disease seen. This document is electronically signed by Chaz Giordano MD., March 08 2019 01:30:28 AM ET
[2019-03-08 01:35] LABS: BUN/Creatinine Ratio 15; Blood Urea Nitrogen 15 mg/dL (9-20); Calcium 9.5 mg/dL (8.4-10.2); Hemolysis Index 6
[2019-03-08 02:17] LABS: Bilirubin,Urine NEG (Negative); Blood,Urine NEG (Negative); Color,Urine Yellow (Yellow); Protein,Urine <15 mg/dL mg/dL (Negative)
[2019-03-08 02:56] LABS: Amphetamine Screen,Urine PRESUMPTIVE POSITIVE; Cannabinoid Screen,Urine PRESUMPTIVE POSITIVE
[2019-03-08 03:42] LABS: Benzodiazepines Screen,Urine PRESUMPTIVE NEGATIVE; Cocaine Screen,Urine PRESUMPTIVE NEGATIVE; Methadone Screen,Urine PRESUMPTIVE NEGATIVE; Opiate Screen,Urine PRESUMPTIVE NEGATIVE
--- NOTE | 2019-03-08 05:03 | Emergency Department Report ---
ED General Adult HPI - General Chief complaint: Upper Respiratory Infection Stated complaint: COUGH/COLD SYMPTOMS Time Seen by Provider: 03/08/19 03:34 Source: patient, RN notes reviewed, old records reviewed Mode of arrival: Ambulatory Limitations: No Limitations - History of Present Illness Initial comments: This is a 23-year-old gentleman. The patient is not known to this provider previously. The patient presents to the emergency room with multiple complaints. The first complaint is cough, mucus production. His has been going on for a few weeks. It is painless. It does not radiate anywhere and does not have exacerbating or relieving factors. Patient reports that he smokes "basically everything." This includes tobacco, methamphetamines, weed, and K3 synthetics. The patient is not interested in tobacco cessation at this time. The patient has no headache, neck pain, chest pain, abdominal pain, shortness of breath or urinary symptoms. He is not homicidal or suicidal. He also requests refill of his psychiatric medications. However, he states that he is "plugged in" with the [facility] team and that " I can follow up with them whenever I want." -: week(s), month(s) Consistency: constant Improves with: none Worsens with: none Associated Symptoms: denies other symptoms - Related Data Home Medications Medication Instructions Recorded Confirmed Last Taken ARIPiprazole [Abilify] 30 mg PO DAILY 12/06/18 12/06/18 12/05/18 Divalproex Sodium [Depakote] 1,500 mg PO TID 12/06/18 12/06/18 12/05/18 Gabapentin [Neurontin] 900 mg PO BID 12/06/18 12/06/18 12/05/18 Previous Rx's Medication Instructions Recorded Last Taken Type Petrolatum,White/Lanolin [[facility] 1 applic TP TID #42.5 oint...g. 01/01/19 Unknown Rx Multi-Purpose Ointment] Sulfamethoxazole/Trimethoprim 1 each PO BID #20 tablet 01/01/19 Unknown Rx [Bactrim Ds Tablet] Allergies Allergy/AdvReac Type Severity Reaction Status Date / Time lamotrigine [From Lamictal] Allergy Unknown Verified 03/25/18 20:03 ED Review of Systems ROS: Stated complaint: COUGH/COLD SYMPTOMS Other details as noted in HPI Constitutional: denies: fever Eyes: denies: eye discharge ENT: congestion. denies: epistaxis Respiratory: cough Cardiovascular: denies: chest pain Gastrointestinal: denies: abdominal pain Musculoskeletal: denies: back pain Skin: denies: lesions Neurological: denies: weakness Psychiatric: denies: homicidal thoughts, suicidal thoughts ED Past Medical Hx - Past Medical History Previous Medical History?: Yes Hx Seizures: Yes Hx Psychiatric Treatment: Yes (Schizoaffective,drug abuse) Hx HIV: Yes (last CD 24, not on any meds) Additional medical history: HIV. neuropathy - Surgical History Past Surgical History?: Yes Additional Surgical History: TBI - Social History Smoking Status: Current Every Day Smoker Substance Use Type: Marijuana - Medications Home Medications: Home Medications Medication Instructions Recorded Confirmed Last Taken Type ARIPiprazole [Abilify] 30 mg PO DAILY 12/06/18 12/06/18 12/05/18 History Divalproex Sodium [Depakote] 1,500 mg PO TID 12/06/18 12/06/18 12/05/18 History Gabapentin [Neurontin] 900 mg PO BID 12/06/18 12/06/18 12/05/18 History Petrolatum,White/Lanolin [[facility] 1 applic TP TID #42.5 oint...g. 01/01/19 Unknown Rx Multi-Purpose Ointment] Sulfamethoxazole/Trimethoprim 1 each PO BID #20 tablet 01/01/19 Unknown Rx [Bactrim Ds Tablet] ED Physical Exam - General Limitations: No Limitations General appearance: alert, in no apparent distress - Head Head exam: Present: atraumatic, normocephalic - Eye Eye exam: Present: normal appearance, EOMI. Absent: nystagmus - ENT ENT exam: Present: normal exam, normal orophraynx, mucous membranes moist, normal external ear exam - Neck Neck exam: Present: normal inspection, full ROM. Absent: tenderness, meningismus - Respiratory Respiratory exam: Present: normal lung sounds bilaterally. Absent: respiratory distress - Cardiovascular Cardiovascular Exam: Present: regular rate, normal rhythm, normal heart sounds. Absent: bradycardia, tachycardia, irregular rhythm, systolic murmur, diastolic murmur, rubs, gallop - GI/Abdominal GI/Abdominal exam: Present: soft. Absent: distended, tenderness, guarding, rebound, rigid, pulsatile mass - Rectal Rectal exam: Present: deferred - Extremities Exam Extremities exam: Present: normal inspection, full ROM, other (2+ pulses noted in the bilateral upper, lower extremities. Compartments soft. No long bony tenderness. The pelvis is stable.). Absent: tenderness, pedal edema, joint swelling, calf tenderness - Back Exam Back exam: Present: normal inspection, full ROM. Absent: tenderness, CVA tenderness (R), CVA tenderness (L), paraspinal tenderness, vertebral tenderness - Neurological Exam Neurological exam: Present: alert, oriented X3, normal gait, other (Extraocular movements intact. Tongue midline. No facial droop. Facial sensation intact to light touch in the V1, V2, V3 distribution bilaterally. 5 and 5 strength in 4 extremities.. Sensation is intact to light touch in 4 extremities.). Absent: motor sensory deficit - Psychiatric Psychiatric exam: Present: anxious. Absent: homicidal ideation, suicidal ideation - Skin Skin exam: Present: warm, dry, intact, normal color. Absent: rash ED Course Vital Signs 03/08/19 00:30 Temperature 97.8 F Pulse Rate 91 H Respiratory 18 Rate Blood Pressure 112/71 O2 Sat by Pulse 98 Oximetry ED Medical Decision Making - Lab Data Result diagrams: 03/08/19 01:03 03/08/19 01:03 Vital Signs 03/08/19 00:30 Temperature 97.8 F Pulse Rate 91 H Respiratory 18 Rate Blood Pressure 112/71 O2 Sat by Pulse 98 Oximetry Lab Results 03/08/19 03/08/19 03/08/19 Range/Units 01:03 01:03 01:03 WBC (4.5-11.0) K/mm3 RBC (3.65-5.03) M/mm3 Hgb (11.8-15.2) gm/dl Hct (35.5-45.6) % MCV (84-94) fl MCH (28-32) pg MCHC (32-34) % RDW (13.2-15.2) % Plt Count (140-440) K/mm3 Lymph % (Auto) (13.4-35.0) % [place] % (Auto) (0.0-7.3) % Eos % (Auto) (0.0-4.3) % Baso % (Auto) (0.0-1.8) % Lymph # (1.2-5.4) K/mm3 [place] # (0.0-0.8) K/mm3 Eos # (0.0-0.4) K/mm3 Baso # (0.0-0.1) K/mm3 Seg Neutrophils % (40.0-70.0) % Seg Neutrophils # (1.8-7.7) K/mm3 Sodium 138 (137-145) mmol/L Potassium 3.9 (3.6-5.0) mmol/L Chloride 97.9 L (98-107) mmol/L Carbon Dioxide 29 (22-30) mmol/L Anion Gap 15 mmol/L BUN 15 (9-20) mg/dL Creatinine 1.0 (0.8-1.5) mg/dL Estimated GFR > 60 ml/min BUN/Creatinine Ratio 15 % Glucose 104 H (75-100) mg/dL Calcium 9.5 (8.4-10.2) mg/dL Urine Color (Yellow) Urine Turbidity (Clear) Urine pH (5.0-7.0) Ur Specific [place] (1.003-1.030) Urine Protein (Negative) mg/dL Urine Glucose (UA) (Negative) mg/dL Urine Ketones (Negative) mg/dL Urine Blood (Negative) Urine Nitrite (Negative) Urine Bilirubin (Negative) Urine Urobilinogen (<2.0) mg/dL Ur Leukocyte Esterase (Negative) Urine WBC (Auto) (0.0-6.0) /HPF Urine RBC (Auto) (0.0-6.0) /HPF Salicylates < 0.3 L (2.8-20.0) mg/dL Urine Opiates Screen Urine Methadone Screen Acetaminophen < 5.0 L (10.0-30.0) ug/mL Ur Barbiturates Screen Valproic Acid (50-100) ug/mL Ur Phencyclidine Scrn Ur Amphetamines Screen U Benzodiazepines Scrn Urine Cocaine Screen U Marijuana (THC) Screen Drugs of Abuse Note Plasma/Serum Alcohol (0-0.07) % 03/08/19 03/08/19 03/08/19 Range/Units 01:03 01:03 01:03 WBC 5.3 (4.5-11.0) K/mm3 RBC 5.13 H (3.65-5.03) M/mm3 Hgb 15.1 (11.8-15.2) gm/dl Hct 45.0 (35.5-45.6) % MCV 88 (84-94) fl MCH 30 (28-32) pg MCHC 34 (32-34) % RDW 13.9 (13.2-15.2) % Plt Count 132 L (140-440) K/mm3 Lymph % (Auto) 41.8 H (13.4-35.0) % [place] % (Auto) 8.5 H (0.0-7.3) % Eos % (Auto) 1.8 (0.0-4.3) % Baso % (Auto) 0.2 (0.0-1.8) % Lymph # 2.2 (1.2-5.4) K/mm3 [place] # 0.5 (0.0-0.8) K/mm3 Eos # 0.1 (0.0-0.4) K/mm3 Baso # 0.0 (0.0-0.1) K/mm3 Seg Neutrophils % 47.7 (40.0-70.0) % Seg Neutrophils # 2.5 (1.8-7.7) K/mm3 Sodium (137-145) mmol/L Potassium (3.6-5.0) mmol/L Chloride (98-107) mmol/L Carbon Dioxide (22-30) mmol/L Anion Gap mmol/L BUN (9-20) mg/dL Creatinine (0.8-1.5) mg/dL Estimated GFR ml/min BUN/Creatinine Ratio % Glucose (75-100) mg/dL Calcium (8.4-10.2) mg/dL Urine Color (Yellow) Urine Turbidity (Clear) Urine pH (5.0-7.0) Ur Specific [place] (1.003-1.030) Urine Protein (Negative) mg/dL Urine Glucose (UA) (Negative) mg/dL Urine Ketones (Negative) mg/dL Urine Blood (Negative) Urine Nitrite (Negative) Urine Bilirubin (Negative) Urine Urobilinogen (<2.0) mg/dL Ur Leukocyte Esterase (Negative) Urine WBC (Auto) (0.0-6.0) /HPF Urine RBC (Auto) (0.0-6.0) /HPF Salicylates (2.8-20.0) mg/dL Urine Opiates Screen Urine Methadone Screen Acetaminophen (10.0-30.0) ug/mL Ur Barbiturates Screen Valproic Acid < 2.8 L (50-100) ug/mL Ur Phencyclidine Scrn Ur Amphetamines Screen U Benzodiazepines Scrn Urine Cocaine Screen U Marijuana (THC) Screen Drugs of Abuse Note Plasma/Serum Alcohol < 0.01 (0-0.07) % 03/08/19 03/08/19 Range/Units 02:35 Unknown WBC (4.5-11.0) K/mm3 RBC (3.65-5.03) M/mm3 Hgb (11.8-15.2) gm/dl Hct (35.5-45.6) % MCV (84-94) fl MCH (28-32) pg MCHC (32-34) % RDW (13.2-15.2) % Plt Count (140-440) K/mm3 Lymph % (Auto) (13.4-35.0) % [place] % (Auto) (0.0-7.3) % Eos % (Auto) (0.0-4.3) % Baso % (Auto) (0.0-1.8) % Lymph # (1.2-5.4) K/mm3 [place] # (0.0-0.8) K/mm3 Eos # (0.0-0.4) K/mm3 Baso # (0.0-0.1) K/mm3 Seg Neutrophils % (40.0-70.0) % Seg Neutrophils # (1.8-7.7) K/mm3 Sodium (137-145) mmol/L Potassium (3.6-5.0) mmol/L Chloride (98-107) mmol/L Carbon Dioxide (22-30) mmol/L Anion Gap mmol/L BUN (9-20) mg/dL Creatinine (0.8-1.5) mg/dL Estimated GFR ml/min BUN/Creatinine Ratio % Glucose (75-100) mg/dL Calcium (8.4-10.2) mg/dL Urine Color Yellow (Yellow) Urine Turbidity Clear (Clear) Urine pH 6.0 (5.0-7.0) Ur Specific [place] 1.010 (1.003-1.030) Urine Protein <15 mg/dl (Negative) mg/dL Urine Glucose (UA) Neg (Negative) mg/dL Urine Ketones Neg (Negative) mg/dL Urine Blood Neg (Negative) Urine Nitrite Neg (Negative) Urine Bilirubin Neg (Negative) Urine Urobilinogen 2.0 (<2.0) mg/dL Ur Leukocyte Esterase Neg (Negative) Urine WBC (Auto) 2.0 (0.0-6.0) /HPF Urine RBC (Auto) 2.0 (0.0-6.0) /HPF Salicylates (2.8-20.0) mg/dL Urine Opiates Screen Presumptive negative Urine Methadone Screen Presumptive negative Acetaminophen (10.0-30.0) ug/mL Ur Barbiturates Screen Presumptive negative Valproic Acid (50-100) ug/mL Ur Phencyclidine Scrn Presumptive negative Ur Amphetamines Screen Presumptive positive U Benzodiazepines Scrn Presumptive negative Urine Cocaine Screen Presumptive negative U Marijuana (THC) Screen Presumptive positive Drugs of Abuse Note Disclamer Plasma/Serum Alcohol (0-0.07) % - Radiology Data Radiology results: report reviewed, image reviewed X-ray of the chest is negative for acute disease. - Medical Decision Making Differential diagnosis, including but not limited to: Bronchitis, history of polysubstance use, general medical evaluation Assessment and plan: 23-year-old gentleman with 2 requests Complaint #1, cough and mucus production. Likely bronchitis. Physical exam unremarkable. Chest x-ray unremarkable. Likely secondary to patient "smoking everything." He is not interested in stopping smoking at this time. I have strongly recommended the patient discontinued tobacco consumption, and all smoke product consumption. He does not require antibiotic therapy at this time. Complaint #2, request for psychiatric medication refill. The patient is not homicidal or suicidal. He is alert and oriented, and walks with a steady gait. He does not meet 1013 criteria. Patient was informed that since this provider is not aware of the potential interactions between the street drugs that he is reportedly ingesting, and the psychiatric medications that he has requested to have refilled, this provider does not feel medically comfortable or appropriate refilling his psychiatric medications. He was strongly encouraged to discontinue consumption of recreational drugs. He is strongly encouraged to follow up with an outpatient primary care doctor or psychiatrist to have his chronic outpatient medications refilled. Patient does not appear to have an emergent medical or psychiatric condition at this time, and is suitable to follow-up as an outpatient. He is clinically sober at this point in time. Critical care attestation.: If time is entered above; I have spent that time in minutes in the direct care of this critically ill patient, excluding procedure time. ED Disposition Clinical Impression: Bronchitis, Polysubstance abuse Disposition: DC-01 TO HOME OR SELFCARE Is pt being admited?: No Does the pt Need Aspirin: No Condition: Good Instructions: Acute Bronchitis (ED) Additional Instructions: Symptoms likely coming from bronchitis. This is likely secondary to the drugs that the patient is smoking. I recommended the patient stop smoking everything. This will improve quality of life, and decrease lifetime risk for addiction, disability, , paralysis, loss of quality of life. The patient should follow-up with her primary care doctor or psychiatrist to have his psychiatric medications refilled. Please return to the emergency room right away with new, worse or different symptoms, or symptoms are not present on the initial emergency room evaluation. Referrals: MARION FLOYD MD [Primary Care Provider] - 3-5 Days
[2019-03-08 06:19] VITALS: BP 94/43
== END 2019-03-08 05:25 | disposition home or self-care (01) ==
LOC: ED 00:07
DX: J40 Bronchitis, not specified as acute or chronic (principal); F19.10 Other psychoactive substance abuse, uncomplicated; F25.9 Schizoaffective disorder, unspecified; F17.200 Nicotine dependence, unspecified, uncomplicated; F15.10 Other stimulant abuse, uncomplicated; Z76.0 Encounter for issue of repeat prescription; Z88.8 Allergy status to other drugs, medicaments and biological substances; Z21 Asymptomatic human immunodeficiency virus [HIV] infection status; G62.9 Polyneuropathy, unspecified
CPT/HCPCS: 36415; 71046; 80048; 80164; 80307; 81001; 85025; 99283; G0480; 80320

== ENCOUNTER 2019-03-13 04:50 | Emergency (ER) | payer MEDICAID ==
[2019-03-13 05:19] VITALS: BP 118/83
[2019-03-13 05:28] LABS: Basophils % (Auto) 0.2 % (0.0-1.8); Eosinophils # (Auto) 0.1 K/mm3 (0.0-0.4); Eosinophils % (Auto) 0.7 % (0.0-4.3); Hematocrit 42.9 % (35.5-45.6); Hemoglobin 14.2 gm/dl (11.8-15.2); Mean Corpuscular HGB Conc 33 % (32-34); Mean Corpuscular Volume 88 fl (84-94); Monocytes # (Auto) 0.6 K/mm3 (0.0-0.8); Monocytes % (Auto) 8.6 % (0.0-7.3); Platelet Count 125 K/mm3 (140-440); Red Blood Count 4.88 M/mm3 (3.65-5.03); Red Cell Distribution Width 13.8 % (13.2-15.2)
[2019-03-13 05:38] LABS: BUN/Creatinine Ratio 12; Blood Urea Nitrogen 11 mg/dL (9-20); Calcium 9.6 mg/dL (8.4-10.2); Hemolysis Index 11
== END 2019-03-13 06:39 | disposition left against medical advice (07) ==
LOC: ED 04:50
DX: R46.89 Other symptoms and signs involving appearance and behavior (principal); Z53.21 Procedure and treatment not carried out due to patient leaving prior to being seen by health care provider
CPT/HCPCS: 36415; 80048; 85025; G0480; 80320

== ENCOUNTER 2019-09-01 10:48 | Emergency (ER) | payer MEDICAID ==
--- NOTE | 2019-09-01 11:05 | Event Note ---
ED Screening Note Date of service: 09/01/19 Time: 11:02 ED Screening Note: 24 y/o male comes reprting that he needs help. Reports that he was discharge from [facility] yesterday. Reports that he quit doing illicit drugs 3 days ago. This initial assessment/diagnostic orders/clinical plan/treatment(s) is/are subject to change based on patients health status, clinical progression and re- assessment by fellow clinical providers in the ED. Further treatment and workup at subsequent clinical providers discretion. Patient/guardian urged not to elope from the ED as their condition may be serious if not clinically assessed and managed. Initial orders include:
--- NOTE | 2019-09-01 11:30 | Emergency Department Report ---
<JESSICA WALKER - Last Filed: 09/01/19 16:22> ED Psych HPI - General Chief Complaint: Psych Stated Complaint: THREATING/MH EVAL Time Seen by Provider: 09/01/19 11:01 Source: patient Mode of arrival: Ambulatory - History of Present Illness Initial Comments: 24 y/o male comes reprting that he needs help. Reports that he was discharge from [facility] yesterday. Reports that he quit doing illicit drugs 3 days ago. Patient reports if he can get any Dinneen may have to make things happen for anyway. Reports that every time he just needs to . Reports it is homeless. Denies any suicidal ideation. Patient had a history of HIV, schizoaffective, drug abuse, neuropathy, TBI. MD Complaint: other (homicidal ideation) Onset/Timin -: days(s) Associated Psychiatric Symptoms: homicidal ideation History of same: Yes Improves With: none Worsens With: none Context: recent drug abuse, not taking psychiatric Associated Symptoms: denies other symptoms Treatments Prior to Arrival: placed on mental he If Self Harm: has plan - Related Data Home Medications Medication Instructions Recorded Confirmed Last Taken ARIPiprazole [Abilify] 30 mg PO DAILY 12/06/18 09/02/19 12/05/18 Divalproex Sodium [Depakote] 1,500 mg PO TID 12/06/18 09/02/19 12/05/18 Gabapentin [Neurontin] 900 mg PO BID 12/06/18 09/02/19 12/05/18 Previous Rx's Medication Instructions Recorded Last Taken Type Petrolatum,White/Lanolin [[facility] 1 applic TP TID #42.5 oint...g. 01/01/19 Unknown Rx Multi-Purpose Ointment] Sulfamethoxazole/Trimethoprim 1 each PO BID #20 tablet 01/01/19 Unknown Rx [Bactrim Ds Tablet] Albuterol Sulfate [Proair 90 mcg IH Q4HR PRN #2 [email or web address] 03/08/19 Unknown Rx Respiclick] Benzonatate [Tessalon Perles] 100 mg PO Q8HR PRN #30 capsule 03/08/19 Unknown Rx Fluticasone [Flonase] 1 spray NS QDAY #1 bottle 03/08/19 Unknown Rx Allergies Allergy/AdvReac Type Severity Reaction Status Date / Time lamotrigine [From Lamictal] Allergy Unknown Verified 03/25/18 20:03 ED Review of Systems Comment: All other systems reviewed and negative Psychiatric: homicidal thoughts ED Past Medical Hx - Past Medical History Previous Medical History?: Yes Hx Seizures: Yes Hx Psychiatric Treatment: Yes (Schizoaffective,drug abuse) Hx HIV: Yes (last CD 24, not on any meds) Additional medical history: HIV. neuropathy - Surgical History Past Surgical History?: Yes Additional Surgical History: TBI - Social History Smoking Status: Current Every Day Smoker Substance Use Type: Alcohol, Cocaine, Heroin, Marijuana, Other - Medications Home Medications: Home Medications Medication Instructions Recorded Confirmed Last Taken Type ARIPiprazole [Abilify] 30 mg PO DAILY 12/06/18 09/02/19 12/05/18 History Divalproex Sodium [Depakote] 1,500 mg PO TID 12/06/18 09/02/19 12/05/18 History Gabapentin [Neurontin] 900 mg PO BID 12/06/18 09/02/19 12/05/18 History Petrolatum,White/Lanolin [[facility]vs 1 applic TP TID #42.5 oint...g. 01/01/19 09/02/19 Unknown Rx Multi-Purpose Ointment] Sulfamethoxazole/Trimethoprim 1 each PO BID #20 tablet 01/01/19 09/02/19 Unknown Rx [Bactrim Ds Tablet] Albuterol Sulfate [Proair 90 mcg IH Q4HR PRN #2 aer.[email or web address] 03/08/19 09/02/19 Unknown Rx Respiclick] Benzonatate [Tessalon Perles] 100 mg PO Q8HR PRN #30 capsule 03/08/19 09/02/19 Unknown Rx Fluticasone [Flonase] 1 spray NS QDAY #1 bottle 03/08/19 09/02/19 Unknown Rx ED Physical Exam - General Limitations: No Limitations General appearance: alert, in no apparent distress - Head Head exam: Present: atraumatic, normocephalic - Eye Eye exam: Present: normal appearance - ENT ENT exam: Present: mucous membranes moist - Neck Neck exam: Present: normal inspection - Respiratory Respiratory exam: Present: normal lung sounds bilaterally. Absent: respiratory distress - Cardiovascular Cardiovascular Exam: Present: regular rate, normal rhythm. Absent: systolic murmur, diastolic murmur, rubs, gallop - Neurological Exam Neurological exam: Present: alert, oriented X3, normal gait - Psychiatric Psychiatric exam: Present: agitated, flat affect - Skin Skin exam: Present: warm, dry, intact, normal color. Absent: rash ED Medical Decision Making - Lab Data Result diagrams: 09/01/19 11:54 09/01/19 11:54 Laboratory Tests 09/01/19 09/01/19 09/01/19 11:30 11:30 11:54 WBC RBC Hgb Hct MCV MCH MCHC RDW Plt Count Lymph % (Auto) [place] % (Auto) Eos % (Auto) Baso % (Auto) Lymph # [place] # Eos # Baso # Seg Neutrophils % Seg Neutrophils # Sodium Potassium Chloride Carbon Dioxide Anion Gap BUN Creatinine Estimated GFR BUN/Creatinine Ratio Glucose Calcium Urine Color Yellow Urine Turbidity Clear Urine pH 6.0 Ur Specific [place] 1.013 Urine Protein <15 mg/dl Urine Glucose (UA) Neg Urine Ketones Neg Urine Blood Sm Urine Nitrite Neg Urine Bilirubin Neg Urine Urobilinogen < 2.0 Ur Leukocyte Esterase Neg Urine WBC (Auto) 1.0 Urine RBC (Auto) 1.0 Urine Mucus Few Salicylates < 0.3 L Urine Opiates Screen Presumptive negative Urine Methadone Screen Presumptive negative Acetaminophen Ur Barbiturates Screen Presumptive negative Ur Phencyclidine Scrn Presumptive negative Ur Amphetamines Screen Presumptive positive U Benzodiazepines Scrn Presumptive negative Urine Cocaine Screen Presumptive negative U Marijuana (THC) Screen Presumptive negative Drugs of Abuse Note Disclamer Plasma/Serum Alcohol 09/01/19 09/01/19 09/01/19 11:54 11:54 11:54 WBC RBC Hgb Hct MCV MCH MCHC RDW Plt Count Lymph % (Auto) [place] % (Auto) Eos % (Auto) Baso % (Auto) Lymph # [place] # Eos # Baso # Seg Neutrophils % Seg Neutrophils # Sodium 139 Potassium 4.1 Chloride 100.8 Carbon Dioxide 23 Anion Gap 19 BUN 9 Creatinine 0.8 Estimated GFR > 60 BUN/Creatinine Ratio 11 Glucose 82 Calcium 9.3 Urine Color Urine Turbidity Urine pH Ur Specific [place] Urine Protein Urine Glucose (UA) Urine Ketones Urine Blood Urine Nitrite Urine Bilirubin Urine Urobilinogen Ur Leukocyte Esterase Urine WBC (Auto) Urine RBC (Auto) Urine Mucus Salicylates Urine Opiates Screen Urine Methadone Screen Acetaminophen < 5.0 L Ur Barbiturates Screen Ur Phencyclidine Scrn Ur Amphetamines Screen U Benzodiazepines Scrn Urine Cocaine Screen U Marijuana (THC) Screen Drugs of Abuse Note Plasma/Serum Alcohol < 0.01 09/01/19 11:54 WBC 6.3 RBC 5.03 Hgb 15.0 Hct 45.3 MCV 90 MCH 30 MCHC 33 RDW 14.2 Plt Count 109 L Lymph % (Auto) 26.9 [place] % (Auto) 10.2 H Eos % (Auto) 1.4 Baso % (Auto) 0.2 Lymph # 1.7 [place] # 0.6 Eos # 0.1 Baso # 0.0 Seg Neutrophils % 61.3 Seg Neutrophils # 3.8 Sodium Potassium Chloride Carbon Dioxide Anion Gap BUN Creatinine Estimated GFR BUN/Creatinine Ratio Glucose Calcium Urine Color Urine Turbidity Urine pH Ur Specific [place] Urine Protein Urine Glucose (UA) Urine Ketones Urine Blood Urine Nitrite Urine Bilirubin Urine Urobilinogen Ur Leukocyte Esterase Urine WBC (Auto) Urine RBC (Auto) Urine Mucus Salicylates Urine Opiates Screen Urine Methadone Screen Acetaminophen Ur Barbiturates Screen Ur Phencyclidine Scrn Ur Amphetamines Screen U Benzodiazepines Scrn Urine Cocaine Screen U Marijuana (THC) Screen Drugs of Abuse Note Plasma/Serum Alcohol - Medical Decision Making 24 y/o male comes reprting that he needs help. Reports that he was discharge from [facility] yesterday. Reports that he quit doing illicit drugs 3 days ago. Patient reports if he can get any Dinne[place] may have to make things happen for anyway. Reports that every time he just needs to . Reports it is homeless. Denies any suicidal ideation. Patient had a history of HIV, schizoaffective, drug abuse, neuropathy, TBI. Patient is medically cleared to be placed on a ER hold for psych evaluation. ED Disposition Clinical Impression: Amphetamine abuse, Schizophrenia Disposition: DC-01 TO HOME OR SELFCARE Condition: Stable Instructions: Mood Disorders (ED), Methamphetamine Abuse (ED) Referrals: [facility] [Outside] - 3-5 Days PRIMARY CARE, [Primary Care Provider] - 3-5 Days <YUVAL VELAZCO S - Last Filed: 10/11/19 05:57> ED Review of Systems ROS: Stated complaint: THREATING/MH EVAL Other details as noted in HPI ED Course Vital Signs 09/01/19 09/01/19 09/01/19 10:59 15:11 20:41 Temperature 98.8 F 98.5 F 98.5 F Pulse Rate 73 92 H 74 Respiratory 18 18 18 Rate Blood Pressure 104/80 Blood Pressure 107/55 106/49 [Left] O2 Sat by Pulse 100 97 96 Oximetry 09/02/19 09/02/19 01:10 07:00 Temperature 97.6 F 98.0 F Pulse Rate 82 89 Respiratory 18 18 Rate Blood Pressure Blood Pressure 110/53 117/69 [Left] O2 Sat by Pulse 97 98 Oximetry ED Medical Decision Making - Lab Data Result diagrams: 09/01/19 11:54 09/01/19 11:54 Critical care attestation.: If time is entered above; I have spent that time in minutes in the direct care of this critically ill patient, excluding procedure time. ED Disposition Is pt being admited?: No
[2019-09-01 12:02] LABS: Bilirubin,Urine NEG (Negative); Blood,Urine SM (Negative); Color,Urine Yellow (Yellow); Mucus,Urine FEW /HPF; Protein,Urine <15 mg/dL mg/dL (Negative); Urobilinogen,Urine < 2.0 mg/dL (<2.0)
[2019-09-01 12:20] LABS: Basophils % (Auto) 0.2 % (0.0-1.8); Eosinophils # (Auto) 0.1 K/mm3 (0.0-0.4); Eosinophils % (Auto) 1.4 % (0.0-4.3); Hematocrit 45.3 % (35.5-45.6); Lymphocytes # (Auto) 1.7 K/mm3 (1.2-5.4); Lymphocytes % (Auto) 26.9 % (13.4-35.0); Mean Corpuscular HGB Conc 33 % (32-34); Mean Corpuscular Volume 90 fl (84-94); Monocytes # (Auto) 0.6 K/mm3 (0.0-0.8); Monocytes % (Auto) 10.2 % (0.0-7.3); Platelet Count 109 K/mm3 (140-440); Red Blood Count 5.03 M/mm3 (3.65-5.03); Red Cell Distribution Width 14.2 % (13.2-15.2)
[2019-09-01 12:21] LABS: Benzodiazepines Screen,Urine PRESUMPTIVE NEGATIVE; Cannabinoid Screen,Urine PRESUMPTIVE NEGATIVE; Cocaine Screen,Urine PRESUMPTIVE NEGATIVE; Methadone Screen,Urine PRESUMPTIVE NEGATIVE; Opiate Screen,Urine PRESUMPTIVE NEGATIVE
[2019-09-01 12:32] LABS: BUN/Creatinine Ratio 11; Blood Urea Nitrogen 9 mg/dL (9-20); Calcium 9.3 mg/dL (8.4-10.2); Hemolysis Index 15
[2019-09-01 12:34] LABS: Amphetamine Screen,Urine PRESUMPTIVE POSITIVE
[2019-09-01] MEDS ORDERED: ACETAMINOPHEN 325 MG TAB ONE (22:21)
[2019-09-02 12:13] VITALS: BP 117/69
== END 2019-09-02 10:35 | disposition home or self-care (01) ==
LOC: EEVIPCON 10:48 → ED 10:48
DX: F25.9 Schizoaffective disorder, unspecified (principal); R45.850 Homicidal ideations; F17.200 Nicotine dependence, unspecified, uncomplicated
CPT/HCPCS: 36415; 80048; 80307; 80320; 81001; 85025; 99284; G0480

== ENCOUNTER 2020-11-22 20:08 | Emergency (ER) | payer MEDICAID ==
--- NOTE | 2020-11-22 20:22 | Event Note ---
ED Screening Note Date of service: 11/22/20 Time: 20:19 ED Screening Note: Patient is a 25-year-old -Turkish male with a history of HIV, chronic schizophrenia, anxiety and depression and polysubstance abuse who presents to the ED escorted by the law enforcement officers for suicidal ideation assessment. Patient however denies dizziness, syncope, chest pain or shortness of breath but admits that he has suicidal ideation. In the ED, patient can barely talk and answers all questions with "I do not know". Patient is otherwise alert and oriented x3 and is not in distress and has a flat affect. This initial assessment/diagnostic orders/clinical plan/treatment(s) is/are subject to change based on patients health status, clinical progression and re- assessment by fellow clinical providers in the ED. Further treatment and workup at subsequent clinical providers discretion. Patient/guardian urged not to elope from the ED as their condition may be serious if not clinically assessed and managed. Initial orders include: CBC, CMP, salicylate level, acetaminophen level, urine drug screen, blood alcohol level, TSH, urinalysis, suicidal ideation precaution
--- NOTE | 2020-11-22 20:46 | Emergency Department Report ---
ED Psych HPI - General Chief Complaint: Psych Stated Complaint: SUICIDAL IDEATIONS Time Seen by Provider: 11/22/20 20:30 Source: patient, police Mode of arrival: Ambulatory Limitations: No Limitations - History of Present Illness Initial Comments: Patient is a 25-year-old male that presents emergency room with the police for a mental health evaluation. The police states he brought him in because his and is having suicidal ideations. Police states that the patient's family called for help. Please have placed patient on a 1013. Patient states that he is having suicidal ideation. Patient dates his plan is to jump off a bridge or jump into traffic. Patient states he is having audio and visual hallucinations. Patient states his audio hallucinations are telling him that there is threats on the trains and the airports in the area. Patient states that somebody is trying to attack the city. Patient states that people are out to get him. Pat ient states that nobody wants to help him. Patient states he is feeling depressed. Patient states he is not on his medications. Patient states that his medication because not the right ones for him. Patient states he wants some psychiatric help. Patient denies recent travel. Patient denies recent international travel. Patient denies exposure to the novel coronavirus. Patient denies sick contacts. Patient denies fever and chills. Patient denies cough. Patient denies diarrhea. Patient denies coming in contact with anybody with symptoms of the novel coronavirus. MD Complaint: suicidal ideation, feels depressed -: Sudden Associated Psychiatric Symptoms: depression, suicidal ideation, racing thoughts, auditory hallucinations, visual hallucinations, delusions History of same: Yes Quality: constant Improves With: none Worsens With: none Treatments Prior to Arrival: placed on mental he If Self Harm: admits thoughts of, has plan - Related Data Home Medications Medication Instructions Recorded Confirmed Last Taken ARIPiprazole [Abilify] 30 mg PO DAILY 12/06/18 09/02/19 12/05/18 Divalproex Sodium [Depakote] 1,500 mg PO TID 12/06/18 09/02/19 12/05/18 Gabapentin [Neurontin] 900 mg PO BID 12/06/18 09/02/19 12/05/18 Previous Rx's Medication Instructions Recorded Last Taken Type Petrolatum,White/Lanolin [Cvs 1 applic TP TID #42.5 oint...g. 01/01/19 Unknown Rx Multi-Purpose Ointment] Sulfamethoxazole/Trimethoprim 1 each PO BID #20 tablet 01/01/19 Unknown Rx [Bactrim Ds Tablet] Albuterol Sulfate [Proair 90 mcg IH Q4HR PRN #2 aer.[email or web address] 03/08/19 Unknown Rx Respiclick] Benzonatate [Tessalon Perles] 100 mg PO Q8HR PRN #30 capsule 03/08/19 Unknown Rx Fluticasone [Flonase] 1 spray NS QDAY #1 bottle 03/08/19 Unknown Rx Allergies Allergy/AdvReac Type Severity Reaction Status Date / Time lamotrigine [From Lamictal] Allergy Unknown Verified 03/25/18 20:03 ED Review of Systems ROS: Stated complaint: SUICIDAL IDEATIONS Other details as noted in HPI Constitutional: denies: chills, fever Eyes: denies: eye pain, eye discharge, vision change ENT: denies: ear pain, throat pain Respiratory: denies: cough, shortness of breath, wheezing Cardiovascular: denies: chest pain, palpitations Endocrine: no symptoms reported Gastrointestinal: denies: abdominal pain, nausea, diarrhea Genitourinary: denies: urgency, dysuria Musculoskeletal: denies: back pain, joint swelling, arthralgia Skin: denies: rash, lesions Neurological: denies: headache, weakness, paresthesias Psychiatric: as per HPI, depression, auditory hallucinations, visual hallucinations, suicidal thoughts. denies: anxiety Hematological/Lymphatic: denies: easy bleeding, easy bruising ED Past Medical Hx - Past Medical History Previous Medical History?: Yes Hx Seizures: Yes Hx Psychiatric Treatment: Yes (Schizoaffective,drug abuse) Hx HIV: Yes (last , not on any meds) Additional medical history: HIV. neuropathy - Surgical History Past Surgical History?: Yes Additional Surgical History: TBI - Family History Family history: no significant - Social History Smoking Status: Current Every Day Smoker Substance Use Type: None - Medications Home Medications: Home Medications Medication Instructions Recorded Confirmed Last Taken Type ARIPiprazole [Abilify] 30 mg PO DAILY 12/06/18 09/02/19 12/05/18 History Divalproex Sodium [Depakote] 1,500 mg PO TID 12/06/18 09/02/19 12/05/18 History Gabapentin [Neurontin] 900 mg PO BID 12/06/18 09/02/19 12/05/18 History Petrolatum,White/Lanolin [[facility]vs 1 applic TP TID #42.5 oint...g. 01/01/19 09/02/19 Unknown Rx Multi-Purpose Ointment] Sulfamethoxazole/Trimethoprim 1 each PO BID #20 tablet 01/01/19 09/02/19 Unknown Rx [Bactrim Ds Tablet] Albuterol Sulfate [Proair 90 mcg IH Q4HR PRN #2 aer.pow.[email or web address] 03/08/19 09/02/19 Unknown Rx Respiclick] Benzonatate [Tessalon Perles] 100 mg PO Q8HR PRN #30 capsule 03/08/19 09/02/19 Unknown Rx Fluticasone [Flonase] 1 spray NS QDAY #1 bottle 03/08/19 09/02/19 Unknown Rx ED Physical Exam - General Limitations: No Limitations General appearance: alert, in no apparent distress - Head Head exam: Present: atraumatic, normocephalic - Eye Eye exam: Present: normal appearance - ENT ENT exam: Present: mucous membranes moist - Neck Neck exam: Present: normal inspection - Respiratory Respiratory exam: Present: normal lung sounds bilaterally. Absent: respiratory distress - Cardiovascular Cardiovascular Exam: Present: regular rate, normal rhythm. Absent: systolic murmur, diastolic murmur, rubs, gallop - GI/Abdominal GI/Abdominal exam: Present: soft, normal bowel sounds - Rectal Rectal exam: Present: deferred - Extremities Exam Extremities exam: Present: normal inspection - Back Exam Back exam: Present: normal inspection - Neurological Exam Neurological exam: Present: alert, oriented X3 - Psychiatric Psychiatric exam: Present: flat affect, suicidal ideation - Expanded Psychiatric Exam Expanded Focused psych exam: Present: pressured speech, delusional, paranoid - Skin Skin exam: Present: warm, dry, intact, normal color. Absent: rash ED Course Vital Signs 11/22/20 20:16 Temperature 98.6 F Pulse Rate 110 H Respiratory 20 Rate Blood Pressure 152/85 O2 Sat by Pulse 98 Oximetry - Reevaluation(s) Reevaluation #1: Patient was evaluated with the police in the room. The police have already patient placed on 1013 for transport. Patient placed on our 1013. 11/22/20 20:47 Reevaluation #2: Patient is medically cleared. Patient will remain in the ER as an ER hold patient is cleared by our psychiatry team. Patient's final disposition will come team. 11/23/20 02:41 ED Medical Decision Making - Lab Data Result diagrams: 11/22/20 20:22 11/22/20 20:22 - Medical Decision Making Patient is a 25-year-old male that presents emergency room for mental health evaluation. Patient presented with the police. Patient placed on 1013. Patient had labs done which were essentially unremarkable. Patient's UDS was positive. Patient placed on a 1013. Patient placed on a ER hold. Patient had medical clearance labs done. Patient's labs were essentially unremarkable. Patient is medically cleared. Patient will remain in the ER as an ER hold until cleared by psychiatry and mental health team. Patient's final disposition will come from the psychiatry mental health team. - Differential Diagnosis Suicidal ideations, psychosis, Critical care attestation.: If time is entered above; I have spent that time in minutes in the direct care of this critically ill patient, excluding procedure time. ED Disposition Clinical Impression: Suicidal ideations Is pt being admited?: No Does the pt Need Aspirin: No Condition: Stable Referrals: PRIMARY CARE, [Primary Care Provider] - 2-3 Days Time of Disposition: 02:40
[2020-11-22 21:06] LABS: Basophils % (Auto) 0.1 % (0.0-1.8); Eosinophils % (Auto) 0.8 % (0.0-4.3); Hematocrit 42.2 % (35.5-45.6); Hemoglobin 13.8 gm/dl (11.8-15.2); Lymphocytes # (Auto) 1.7 K/mm3 (1.2-5.4); Lymphocytes % (Auto) 30.8 % (13.4-35.0); Mean Corpuscular HGB Conc 33 % (32-34); Mean Corpuscular Volume 88 fl (84-94); Monocytes # (Auto) 0.6 K/mm3 (0.0-0.8); Monocytes % (Auto) 10.7 % (0.0-7.3); Platelet Count 88 K/mm3 (140-440); Red Blood Count 4.79 M/mm3 (3.65-5.03); Red Cell Distribution Width 16.4 % (13.2-15.2)
[2020-11-22 21:19] LABS: Alanine Aminotransferase 15 units/L (7-56); Albumin 4.5 g/dL (3.9-5); Blood Urea Nitrogen 11 mg/dL (9-20); Calcium 9.4 mg/dL (8.4-10.2); Hemolysis Index 5
[2020-11-22 21:20] LABS: BUN/Creatinine Ratio 16
[2020-11-23 00:56] LABS: Amphetamine Screen,Urine PRESUMPTIVE POSITIVE; Benzodiazepines Screen,Urine PRESUMPTIVE NEGATIVE; Bilirubin,Urine NEG (Negative); Blood,Urine NEG (Negative); Cannabinoid Screen,Urine PRESUMPTIVE NEGATIVE; Cocaine Screen,Urine PRESUMPTIVE POSITIVE; Color,Urine Yellow (Yellow); Methadone Screen,Urine PRESUMPTIVE NEGATIVE; Mucus,Urine 3+ /HPF; Opiate Screen,Urine PRESUMPTIVE NEGATIVE
--- NOTE | 2020-11-23 09:40 | Consultation ---
History of Present Illness - Reason for Consult Consult date: 11/23/20 Reason for consult: psychosis - History of Present Psychiatric Illness Per ED note: "Patient is a 25-year-old male that presents emergency room with the police for a mental health evaluation. The police states he brought him in because his and is having suicidal ideations. Police states that the patient's family called for help. Please have placed patient on a 1013. Patient states that he is having suicidal ideation. Patient dates his plan is to jump off a bridge or jump into traffic. Patient states he is having audio and visual hallucinations. Patient states his audio hallucinations are telling him that there is threats on the trains and the airports in the area. Patient states that somebody is trying to attack the city. Patient states that people are out to get him. Patient states that nobody wants to help him. Patient states he is feeling depressed. Patient states he is not on his medications. Patient states that his medication because not the right ones for him. Patient states he wants some psychiatric help." I attempted to interview the patient today. He is lying in bed and staring at me with a bizarre look on his face. He is paranoid. He appears to be responding to internal stimuli. He looks at the wall then starts staring intensely. He states he doesn't feel comfortable talking to me. The patient says "I don't trust you or any of you." He then continues to gaze at me. The nurse caring for the patient says he's been coming to the door just staring at her with a strange look on his face. Psychiatric History unable to assess Medical history: None reported Family psych history: None reported Social History unable to assess REVIEW OF SYSTEMS unable to assess MENTAL STATUS EXAMINATION General Appearance and Behavior: Age appropriate, good hygiene, wearing appropriate clothes, staring intensely Cooperation: Guarded, uncooperative Psychomotor Behavior: Psychomotor normal Mood: Affect and affective range: restricted Thought Process: illogical Thought Content: paranoia, responding to internal stimuli Speech: Normal rate, volume and rhythm Suicidal Ideation: Unable to assess Homicidal Ideation: Unable to assess Hallucinations: Delusions: Paranoia Impulse Control: Impaired Insight and Judgment: Limited insight and judgment Memory: Normal Attention: Normal Orientation: Alert, oriented. Assessment and Plan (1) Paranoid Schizophrenia (2) Cocaine Dependence (3) Methamphetamine Depdendence Current Visit: Yes Status: Acute Treatment Plan Start Depakote DR 125mg po BID Start Risperidone 0.5mg po BID Start Trazodone 50mg po qhs Start Geodon 20mg IM q6h prn agitation Sitter: defer to primary Medical: per primary Disposition: Recommend acute inpatient treatment Will follow. Case staffed with Dr. Sheldon. Medications and Allergies Allergies Allergy/AdvReac Type Severity Reaction Status Date / Time lamotrigine [From Lamictal] Allergy Unknown Verified 03/25/18 20:03 Home Medications Medication Instructions Recorded Confirmed Last Taken Type ARIPiprazole [Abilify] 30 mg PO DAILY 12/06/18 09/02/19 12/05/18 History Divalproex Sodium [Depakote] 1,500 mg PO TID 12/06/18 09/02/19 12/05/18 History Gabapentin [Neurontin] 900 mg PO BID 12/06/18 09/02/19 12/05/18 History Petrolatum,White/Lanolin [[facility]vs 1 applic TP TID #42.5 oint...g. 01/01/19 09/02/19 Unknown Rx Multi-Purpose Ointment] Sulfamethoxazole/Trimethoprim 1 each PO BID #20 tablet 01/01/19 09/02/19 Unknown Rx [Bactrim Ds Tablet] Albuterol Sulfate [Proair 90 mcg IH Q4HR PRN #2 aer.[email or web address] 03/08/19 09/02/19 Unknown Rx Respiclick] Benzonatate [Tessalon Perles] 100 mg PO Q8HR PRN #30 capsule 03/08/19 09/02/19 Unknown Rx Fluticasone [Flonase] 1 spray NS QDAY #1 bottle 03/08/19 09/02/19 Unknown Rx Mental Status Exam - Vital signs Last Vital Signs Temp 97.5 F L 11/23/20 07:31 Pulse 95 H 11/23/20 07:31 Resp 18 11/23/20 07:31 BP 125/74 11/23/20 07:31 Pulse Ox 98 11/23/20 07:31 Results Result Diagrams: 11/22/20 20:22 11/22/20 20:22 Abnormal lab results 11/22/20 11/22/20 11/22/20 Range/Units 20:22 20:22 20:22 RDW 16.4 H (13.2-15.2) % Plt Count 88 L (140-440) K/mm3 [place] % (Auto) 10.7 H (0.0-7.3) % Creatinine (0.8-1.3) mg/dL Salicylates < 0.3 L (2.8-20.0) mg/dL Acetaminophen 5.0 L (10.0-30.0) ug/mL 11/22/20 Range/Units 20:22 RDW (13.2-15.2) % Plt Count (140-440) K/mm3 [place] % (Auto) (0.0-7.3) % Creatinine 0.7 L (0.8-1.3) mg/dL Salicylates (2.8-20.0) mg/dL Acetaminophen (10.0-30.0) ug/mL All other labs normal.
[2020-11-23] MEDS ORDERED: ZIPRASIDONE MESYLATE 20 MG VIAL IM PRN (09:50)
[2020-11-23] MEDS: risperiDONE 0.25 MG TAB PO SCH ×2 (10:21→22:07)
[2020-11-23] MEDS: DIVALPROEX DR 125 MG TAB PO SCH ×2 (10:21→22:08)
[2020-11-23] MEDS: traZODone 50 MG TAB PO SCH (22:08)
--- NOTE | 2020-11-24 08:37 | Progress Note ---
Subjective - Reason for Consult Consult date: 11/24/20 Reason for consult: psychosis - Chief Complaint Chief complaint: Per ED nurse: The patient has been severely anxious and pacing back and fourth The patient was seen today, he is sitting in bed. He is paranoid and guarded. He says he "feels fine and slept good." When asked was he suicidal, the patient would not respond. He just started at me. He also would not give a response if he was having hallucinations. REVIEW OF SYSTEMS unable to assess MENTAL STATUS EXAMINATION General Appearance and Behavior: Age appropriate, good hygiene, wearing jacquie ropriate clothes, staring intensely Cooperation: Guarded, uncooperative Psychomotor Behavior: Psychomotor normal Mood: Affect and affective range: restricted Thought Process: illogical Thought Content: paranoia, responding to internal stimuli Speech: Normal rate, volume and rhythm Suicidal Ideation: Unable to assess Homicidal Ideation: Unable to assess Hallucinations: Delusions: Paranoia Impulse Control: Impaired Insight and Judgment: Limited insight and judgment Memory: Normal Attention: Normal Orientation: Alert, oriented. Assessment and Plan (1) Paranoid Schizophrenia (2) Cocaine Dependence (3) Methamphetamine Depdendence Current Visit: Yes Status: Acute Treatment Plan Increased Depakote DR 250mg po BID Increased Risperidone 1mg po BID Continue Trazodone 50mg po qhs Continue Geodon 20mg IM q6h prn agitation Sitter: defer to primary Medical: per primary Disposition: Recommend acute inpatient treatment Will follow. Case staffed with Dr. Sheldon. Mental Status Exam - Vital signs Last Vital Signs Temp 99.9 F H 11/24/20 01:35 Pulse 95 H 11/24/20 07:30 Resp 18 11/24/20 07:30 BP 135/74 11/24/20 07:30 Pulse Ox 98 11/24/20 07:30
[2020-11-24] MEDS: DIVALPROEX DR 250 MG TAB PO SCH ×2 (10:46→22:12)
[2020-11-24] MEDS: risperiDONE 1 MG TAB PO SCH ×2 (10:47→22:13)
[2020-11-24] MEDS ORDERED: diphenhydrAMINE 25 MG CAP PO ONE (18:10)
[2020-11-24 20:21] VITALS: BP 138/85
[2020-11-24] MEDS: traZODone 50 MG TAB PO SCH (22:13)
== END 2020-11-25 00:31 ==
LOC: ED 20:08
DX: R45.851 Suicidal ideations (principal); F17.200 Nicotine dependence, unspecified, uncomplicated; F25.9 Schizoaffective disorder, unspecified; Z20.822 Contact with and (suspected) exposure to COVID-19; Z79.899 Other long term (current) drug therapy; Z88.0 Allergy status to penicillin; Z88.8 Allergy status to other drugs, medicaments and biological substances; Z21 Asymptomatic human immunodeficiency virus [HIV] infection status
CPT/HCPCS: 36415; 80053; 80307; 81001; 84443; 85025; 99285; U0003; 80320; G0480

== ENCOUNTER 2020-12-22 14:19 | Emergency (ER) | payer MEDICAID ==
--- NOTE | 2020-12-22 15:19 | Emergency Department Report ---
HPI - General Chief Complaint: Psych Time Seen by Provider: 12/22/20 15:08 - HPI HPI: This is a 25-year-old male who presents to the emergency department with complaint of anxiety, suicidal and homicidal ideations. Overall the patient says that this been going on for the past month. He has a diagnosed history of schizoaffective disorder but admits that he has not been on any medication for the past year. He does not have any plan for his suicidal or homicidal ideations. The patient is "unsure" if he is having any recent auditory or visual hallucinations. Patient says that he is a daily tobacco smoker. He will occasionally use illicit drugs but denies any today. The patient also says that he drinks alcohol regularly but denies any history of alcohol dependence and did not consume any alcohol today. ED Past Medical Hx - Past Medical History Hx Seizures: Yes Hx Psychiatric Treatment: Yes (Schizoaffective,drug abuse) Hx HIV: Yes (last , not on any meds) Additional medical history: HIV. neuropathy - Surgical History Additional Surgical History: TBI - Social History Smoking Status: Current Every Day Smoker Substance Use Type: None - Medications Home Medications: Home Medications Medication Instructions Recorded Confirmed Last Taken Type ARIPiprazole [Abilify] 30 mg PO DAILY 12/06/18 09/02/19 12/05/18 History Divalproex Sodium [Depakote] 1,500 mg PO TID 12/06/18 09/02/19 12/05/18 History Gabapentin [Neurontin] 900 mg PO BID 12/06/18 09/02/19 12/05/18 History Petrolatum,White/Lanolin [Cvs 1 applic TP TID #42.5 oint...g. 01/01/19 09/02/19 Unknown Rx Multi-Purpose Ointment] Sulfamethoxazole/Trimethoprim 1 each PO BID #20 tablet 01/01/19 09/02/19 Unknown Rx [Bactrim Ds Tablet] Albuterol Sulfate [Proair 90 mcg IH Q4HR PRN #2 aer.pow.ba 03/08/19 09/02/19 Unknown Rx Respiclick] Benzonatate [Tessalon Perles] 100 mg PO Q8HR PRN #30 capsule 03/08/19 09/02/19 Unknown Rx Fluticasone [Flonase] 1 spray NS QDAY #1 bottle 03/08/19 09/02/19 Unknown Rx ED Review of Systems ROS: Stated complaint: ANXIETY/NAUSEA Other details as noted in HPI Comment: All other systems reviewed and negative Constitutional: denies: chills, fever Respiratory: denies: cough, shortness of breath Cardiovascular: denies: chest pain, edema Gastrointestinal: nausea. denies: abdominal pain, vomiting Musculoskeletal: denies: back pain, arthralgia Neurological: denies: headache, weakness Psychiatric: anxiety, homicidal thoughts, suicidal thoughts Physical Exam - Physical Exam Physical Exam: GENERAL: The patient is well-developed well-nourished. HENT: Normocephalic. Atraumatic. Patient has moist mucous membranes. EYES: Extraocular motions are intact. NECK: Supple. Trachea is midline. CHEST/LUNGS: Clear to auscultation. There is no respiratory distress noted. HEART/CARDIOVASCULAR: Regular. There is no tachycardia. There is no murmur. ABDOMEN: Abdomen is soft, nontender. Patient has normal bowel sounds. SKIN: Skin is warm and dry. NEURO: The patient is awake, alert, and oriented. The patient is cooperative. Normal speech. MUSCULOSKELETAL: There is no tenderness or deformity. There is no limitation range of motion. ED Medical Decision Making - Lab Data Result diagrams: 12/22/20 15:29 12/22/20 15:29 Lab Results 12/22/20 12/22/20 12/22/20 Range/Units 15:29 15:29 15:29 WBC 6.6 (4.5-11.0) K/mm3 RBC 5.39 H (3.65-5.03) M/mm3 Hgb 15.3 H (11.8-15.2) gm/dl Hct 46.7 H (35.5-45.6) % MCV 87 (84-94) fl MCH 28 (28-32) pg MCHC 33 (32-34) % RDW 15.8 H (13.2-15.2) % Plt Count 103 L (140-440) K/mm3 Lymph % (Auto) 27.9 (13.4-35.0) % [place] % (Auto) 7.7 H (0.0-7.3) % Eos % (Auto) 1.3 (0.0-4.3) % Baso % (Auto) 0.2 (0.0-1.8) % Lymph # (Auto) 1.8 (1.2-5.4) K/mm3 [place] # (Auto) 0.5 (0.0-0.8) K/mm3 Eos # (Auto) 0.1 (0.0-0.4) K/mm3 Baso # (Auto) 0.0 (0.0-0.1) K/mm3 Seg Neutrophils % 62.9 (40.0-70.0) % Seg Neutrophils # 4.2 (1.8-7.7) K/mm3 Sodium 138 (137-145) mmol/L Potassium 3.3 L (3.6-5.0) mmol/L Chloride 100.1 (98-107) mmol/L Carbon Dioxide 25 (22-30) mmol/L Anion Gap 16 mmol/L BUN 6 L (9-20) mg/dL Creatinine 0.8 (0.8-1.3) mg/dL Estimated GFR > 60 ml/min BUN/Creatinine Ratio 8 % Glucose 105 H (75-100) mg/dL Calcium 9.1 (8.4-10.2) mg/dL Urine Color (Yellow) Urine Turbidity (Clear) Urine pH (5.0-7.0) Ur Specific [place] (1.003-1.030) Urine Protein (Negative) mg/dL Urine Glucose (UA) (Negative) mg/dL Urine Ketones (Negative) mg/dL Urine Blood (Negative) Urine Nitrite (Negative) Urine Bilirubin (Negative) Urine Urobilinogen (<2.0) mg/dL Ur Leukocyte Esterase (Negative) Urine WBC (Auto) (0.0-6.0) /HPF Urine RBC (Auto) (0.0-6.0) /HPF U Epithel Cells (Auto) (0-13.0) /HPF Urine Opiates Screen Urine Methadone Screen Ur Barbiturates Screen Ur Phencyclidine Scrn Ur Amphetamines Screen U Benzodiazepines Scrn Urine Cocaine Screen U Marijuana (THC) Screen Drugs of Abuse Note Plasma/Serum Alcohol < 0.01 (0-0.07) % 12/22/20 12/22/20 Range/Units Unknown Unknown WBC (4.5-11.0) K/mm3 RBC (3.65-5.03) M/mm3 Hgb (11.8-15.2) gm/dl Hct (35.5-45.6) % MCV (84-94) fl MCH (28-32) pg MCHC (32-34) % RDW (13.2-15.2) % Plt Count (140-440) K/mm3 Lymph % (Auto) (13.4-35.0) % [place] % (Auto) (0.0-7.3) % Eos % (Auto) (0.0-4.3) % Baso % (Auto) (0.0-1.8) % Lymph # (Auto) (1.2-5.4) K/mm3 [place] # (Auto) (0.0-0.8) K/mm3 Eos # (Auto) (0.0-0.4) K/mm3 Baso # (Auto) (0.0-0.1) K/mm3 Seg Neutrophils % (40.0-70.0) % Seg Neutrophils # (1.8-7.7) K/mm3 Sodium (137-145) mmol/L Potassium (3.6-5.0) mmol/L Chloride (98-107) mmol/L Carbon Dioxide (22-30) mmol/L Anion Gap mmol/L BUN (9-20) mg/dL Creatinine (0.8-1.3) mg/dL Estimated GFR ml/min BUN/Creatinine Ratio % Glucose (75-100) mg/dL Calcium (8.4-10.2) mg/dL Urine Color Yellow (Yellow) Urine Turbidity Clear (Clear) Urine pH 7.0 (5.0-7.0) Ur Specific [place] 1.010 (1.003-1.030) Urine Protein <15 mg/dl (Negative) mg/dL Urine Glucose (UA) Neg (Negative) mg/dL Urine Ketones Neg (Negative) mg/dL Urine Blood Neg (Negative) Urine Nitrite Neg (Negative) Urine Bilirubin Neg (Negative) Urine Urobilinogen < 2.0 (<2.0) mg/dL Ur Leukocyte Esterase Neg (Negative) Urine WBC (Auto) < 1.0 (0.0-6.0) /HPF Urine RBC (Auto) < 1.0 (0.0-6.0) /HPF U Epithel Cells (Auto) < 1.0 (0-13.0) /HPF Urine Opiates Screen Negative Urine Methadone Screen Negative Ur Barbiturates Screen Negative Ur Phencyclidine Scrn Negative Ur Amphetamines Screen Positive U Benzodiazepines Scrn Negative Urine Cocaine Screen Negative U Marijuana (THC) Screen Negative Drugs of Abuse Note Disclamer Plasma/Serum Alcohol (0-0.07) % - Medical Decision Making This patient presents to the emergency department with a complaint of anxiety and suicidal and homicidal ideations. For this reason he has been made a 1013 and an ED hold. The patient is oriented to, person, place, time but does appear slightly disorganized. The patient was seen by the psychiatric county tax assessor who agrees with the plan for inpatient stabilization. Labs have been mostly unremarkable except for some mild hypokalemia with a potassium of 3.3 that was replaced with potassium chloride, and a urine drug screen positive for amphetamines. Vital signs have been reassuring through his ED course thus far. Patient appears medically cleared for psychiatric placement. Critical Care Time: No Critical care attestation.: If time is entered above; I have spent that time in minutes in the direct care of this critically ill patient, excluding procedure time. ED Disposition Clinical Impression: Suicidal ideations, Homicidal ideations Disposition: [id number]/[id number] PSY HOSP/PSY UNIT Is pt being admited?: No Condition: Stable Time of Disposition: 18:31
[2020-12-22 15:42] LABS: Basophils % (Auto) 0.2 % (0.0-1.8); Eosinophils # (Auto) 0.1 K/mm3 (0.0-0.4); Eosinophils % (Auto) 1.3 % (0.0-4.3); Hematocrit 46.7 % (35.5-45.6); Hemoglobin 15.3 gm/dl (11.8-15.2); Lymphocytes # (Auto) 1.8 K/mm3 (1.2-5.4); Lymphocytes % (Auto) 27.9 % (13.4-35.0); Mean Corpuscular HGB Conc 33 % (32-34); Mean Corpuscular Volume 87 fl (84-94); Monocytes # (Auto) 0.5 K/mm3 (0.0-0.8); Monocytes % (Auto) 7.7 % (0.0-7.3); Platelet Count 103 K/mm3 (140-440); Red Blood Count 5.39 M/mm3 (3.65-5.03); Red Cell Distribution Width 15.8 % (13.2-15.2)
[2020-12-22 15:46] LABS: Benzodiazepines Screen,Urine Negative; Cannabinoid Screen,Urine Negative; Cocaine Screen,Urine Negative; Methadone Screen,Urine Negative; Opiate Screen,Urine Negative
[2020-12-22] MEDS ORDERED: NICOTINE 14 MG/24 HR PATCH TD ONE (15:49)
[2020-12-22 15:52] LABS: Bilirubin,Urine NEG (Negative); Blood,Urine NEG (Negative); Color,Urine Yellow (Yellow); Protein,Urine <15 mg/dL mg/dL (Negative); Urobilinogen,Urine < 2.0 mg/dL (<2.0)
[2020-12-22 15:53] LABS: RBC,Urine < 1.0 /HPF (0.0-6.0); WBC,Urine < 1.0 /HPF (0.0-6.0)
[2020-12-22 16:03] LABS: BUN/Creatinine Ratio 8; Blood Urea Nitrogen 6 mg/dL (9-20); Calcium 9.1 mg/dL (8.4-10.2); Hemolysis Index 17
[2020-12-22] MEDS ORDERED: POTASSIUM CHLORIDE ER 20 MEQ TAB PO ONE (16:21)
[2020-12-22 16:34] LABS: Amphetamine Screen,Urine Positive
[2020-12-22] MEDS ORDERED: ZIPRASIDONE MESYLATE 20 MG VIAL IM ONE (21:27)
[2020-12-22] MEDS ORDERED: ZIPRASIDONE MESYLATE 20 MG VIAL IM PRN (21:27)
[2020-12-22] MEDS ORDERED: WATER FOR INJ Sterile (PF) 10 ML ONE (21:29)
[2020-12-23] MEDS ORDERED: IBUPROFEN 800 MG TAB PO ONE (05:22)
--- NOTE | 2020-12-23 10:45 | Consultation ---
History of Present Illness - Reason for Consult Consult date: 12/23/20 Reason for consult: psychosis - History of Present Psychiatric Illness Per ED Note: This is a 25-year-old male who presents to the emergency department with complaint of anxiety, suicidal and homicidal ideations. Overall the patient says that this been going on for the past month. He has a diagnosed history of schizoaffective disorder but admits that he has not been on any medication for the past year. He does not have any plan for his suicidal or homicidal ideations. The patient is "unsure" if he is having any recent auditory or visual hallucinations. Patient says that he is a daily tobacco smoker. He will occasionally use illicit drugs but denies any today. The patient also says that he drinks alcohol regularly but denies any history of alcohol dependence and did not consume any alcohol today. The patient was seen today. He has a history of schizoaffective disorder and illicit drug use. He is paranoid and responding to internal stimuli. He is staring intensely at my phone in my pocket and refuse to answer any questions. He says "why is your phone on?" The patient then says "I can't talk to you. That phone is on." He keeps staring at my pocket intensely. He then appears to be listening to something. The patient says I just want to listen to music. I don't want to talk to people. The sitter at bedside says the patient has been very paranoid, moving about and messing with things. Psychiatric History unable to assess Medical history: None reported Family psych history: None reported Social History unable to assess REVIEW OF SYSTEMS unable to assess MENTAL STATUS EXAMINATION General Appearance and Behavior: Age appropriate, good hygiene, wearing appropriate clothes, staring intensely Cooperation: Guarded, uncooperative Psychomotor Behavior: Psychomotor normal Mood: Affect and affective range: restricted Thought Process: illogical Thought Content: paranoia, responding to internal stimuli Speech: Normal rate, volume and rhythm Suicidal Ideation: Unable to assess Homicidal Ideation: Unable to assess Hallucinations: Auditory Delusions: Paranoia Impulse Control: Impaired Insight and Judgment:impaired insight and judgment Memory: limited Attention: impaired Orientation: Alert, oriented. Assessment and Plan (1) Paranoid Schizophrenia (3) Methamphetamine Dependence Current Visit: Yes Status: Acute Treatment Plan [address] 125mg po BID Start Risperidone 0.5mg po BID Start Trazodone 50mg po qhs Agree with Enrique Hair: defer to primary Medical: per primary Disposition: Recommend acute inpatient treatment Will follow. Case staffed with Dr. Sheldon. Medications and Allergies Allergies Allergy/AdvReac Type Severity Reaction Status Date / Time lamotrigine [From Lamictal] Allergy Unknown Verified 12/22/20 14:46 Penicillins AdvReac Unknown Verified 12/22/20 14:46 Home Medications Medication Instructions Recorded Confirmed Last Taken Type ARIPiprazole [Abilify] 30 mg PO DAILY 12/06/18 09/02/19 12/05/18 History Divalproex Sodium [Depakote] 1,500 mg PO TID 12/06/18 09/02/19 12/05/18 History Gabapentin [Neurontin] 900 mg PO BID 12/06/18 09/02/19 12/05/18 History Petrolatum,White/Lanolin [[facility] 1 applic TP TID #42.5 oint...g. 01/01/19 09/02/19 Unknown Rx Multi-Purpose Ointment] Sulfamethoxazole/Trimethoprim 1 each PO BID #20 tablet 01/01/19 09/02/19 Unknown Rx [Bactrim Ds Tablet] Albuterol Sulfate [Proair 90 mcg IH Q4HR PRN #2 aer.pow.ba 03/08/19 09/02/19 Unknown Rx Respiclick] Benzonatate [Tessalon Perles] 100 mg PO Q8HR PRN #30 capsule 03/08/19 09/02/19 Unknown Rx Fluticasone [Flonase] 1 spray NS QDAY #1 bottle 03/08/19 09/02/19 Unknown Rx Active Meds: Active Medications Ziprasidone (Ziprasidone Mesylate 20 Mg Vial) 10 mg IM Q2H PRN PRN Reason: Agitation Mental Status Exam - Vital signs Last Vital Signs Temp 96.9 F L 12/23/20 07:58 Pulse 74 12/23/20 07:58 Resp 20 12/23/20 07:58 BP 110/60 12/23/20 07:58 Pulse Ox 96 12/23/20 07:58 Results Result Diagrams: 12/22/20 15:29 12/22/20 15:29 Abnormal lab results 12/22/20 12/22/20 Range/Units 15:29 15:29 RBC 5.39 H (3.65-5.03) M/mm3 Hgb 15.3 H (11.8-15.2) gm/dl Hct 46.7 H (35.5-45.6) % RDW 15.8 H (13.2-15.2) % Plt Count 103 L (140-440) K/mm3 [place] % (Auto) 7.7 H (0.0-7.3) % Potassium 3.3 L (3.6-5.0) mmol/L BUN 6 L (9-20) mg/dL Glucose 105 H (75-100) mg/dL All other labs normal.
[2020-12-23] MEDS: DIVALPROEX DR 125 MG TAB PO SCH ×2 (12:00→21:36)
[2020-12-23] MEDS: risperiDONE 0.25 MG TAB PO SCH ×2 (12:00→21:36)
[2020-12-23] MEDS ORDERED: WATER FOR INJ Sterile (PF) 10 ML ONE (15:21)
[2020-12-23] MEDS ORDERED: diphenhydrAMINE 25 MG/10 ML ORAL LIQUID PO ONE (21:57)
[2020-12-23] MEDS ORDERED: traZODone 50 MG TAB PO SCH (22:00)
[2020-12-23 23:00] VITALS: BP 122/72
== END 2020-12-24 00:41 ==
LOC: EEVIPCON 14:19 → ED 14:19
DX: R45.851 Suicidal ideations (principal); R45.850 Homicidal ideations; G40.909 Epilepsy, unspecified, not intractable, without status epilepticus; F20.9 Schizophrenia, unspecified; Z21 Asymptomatic human immunodeficiency virus [HIV] infection status; Z79.899 Other long term (current) drug therapy; Z20.822 Contact with and (suspected) exposure to COVID-19
CPT/HCPCS: 36415; 80048; 80307; 81001; 85025; 96372; 99285; J3486; Q0163; U0003; 80320; G0480

== ENCOUNTER 2020-12-29 21:44 | Emergency (ER) | payer MEDICAID ==
--- NOTE | 2020-12-29 23:52 | Event Note ---
ED Screening Note ED Screening Note: This is a 25-year-old male with history of HIV, schizoaffective disorder who presents with abdominal cramping vomiting diarrhea after eating beef sticks and ingesting alcohol. This initial assessment/diagnostic orders/clinical plan/treatment(s) is/are subject to change based on patients health status, clinical progression and re- assessment by fellow clinical providers in the ED. Further treatment and workup at subsequent clinical providers discretion. Patient/guardian urged not to elope from the ED as their condition may be serious if not clinically assessed and managed. Initial orders include: CBC, CMP, lipase
[2020-12-30 00:08] LABS: Basophils % (Auto) 0.4 % (0.0-1.8); Eosinophils # (Auto) 0.1 K/mm3 (0.0-0.4); Eosinophils % (Auto) 0.8 % (0.0-4.3); Hematocrit 45.7 % (35.5-45.6); Hemoglobin 14.9 gm/dl (11.8-15.2); Lymphocytes # (Auto) 2.3 K/mm3 (1.2-5.4); Mean Corpuscular HGB Conc 33 % (32-34); Mean Corpuscular Volume 87 fl (84-94); Monocytes # (Auto) 0.4 K/mm3 (0.0-0.8); Monocytes % (Auto) 6.1 % (0.0-7.3); Platelet Count 71 K/mm3 (140-440); Red Blood Count 5.28 M/mm3 (3.65-5.03); Red Cell Distribution Width 15.1 % (13.2-15.2)
[2020-12-30 00:44] LABS: Alanine Aminotransferase 12 units/L (7-56); Albumin 4.5 g/dL (3.9-5); BUN/Creatinine Ratio 8; Blood Urea Nitrogen 6 mg/dL (9-20); Calcium 9.4 mg/dL (8.4-10.2); Hemolysis Index 12
[2020-12-30] MEDS ORDERED: ALUM-MAG HYDROXIDE-SIMETHICONE 200-200-20MG/5ML ORAL LIQD 30 ML PO ONE (09:19)
[2020-12-30] MEDS ORDERED: LIDOCAINE VISCOUS 2% 15 ML ORAL LIQD PO ONE (09:19)
--- NOTE | 2020-12-30 10:10 | Emergency Department Report ---
ED N/V/D HPI - General Chief complaint: Nausea/Vomiting/Diarrhea Stated complaint: ABD PAINS Time Seen by Provider: 12/30/20 08:48 Source: patient, EMS Mode of arrival: Ambulatory Limitations: No Limitations - History of Present Illness Initial comments: 25-year-old male, history of HIV, schizoaffective disorder, alcohol abuse, presents to ED with abdominal pain and nausea after drinking alcohol and eating beef jerky. Patient reports he had vomiting approximately 2 to 3 days ago, however currently he only has nausea. Has any fever or diarrhea. Patient reports daily drinking. MD complaint: nausea, abdominal pain -: Last night Associated Abdominal Pain: Yes Location: diffuse Radiation: none Severity: moderate Quality: cramping Consistency: intermittent Improves with: none Worsens with: none Context: alcohol abuse Associated Symptoms: nausea/vomiting. denies: fever/chills - Related Data Home Medications Medication Instructions Recorded Confirmed Last Taken ARIPiprazole [Abilify] 30 mg PO DAILY 12/06/18 09/02/19 12/05/18 Divalproex Sodium [Depakote] 1,500 mg PO TID 12/06/18 09/02/19 12/05/18 Gabapentin [Neurontin] 900 mg PO BID 12/06/18 09/02/19 12/05/18 Previous Rx's Medication Instructions Recorded Last Taken Type Petrolatum,White/Lanolin [[facility]vs 1 applic TP TID #42.5 oint...g. 01/01/19 Unknown Rx Multi-Purpose Ointment] Sulfamethoxazole/Trimethoprim 1 each PO BID #20 tablet 01/01/19 Unknown Rx [Bactrim Ds Tablet] Albuterol Sulfate [Proair 90 mcg IH Q4HR PRN #2 aer.pow.ba 03/08/19 Unknown Rx Respiclick] Benzonatate [Tessalon Perles] 100 mg PO Q8HR PRN #30 capsule 03/08/19 Unknown Rx Fluticasone [Flonase] 1 spray NS QDAY #1 bottle 03/08/19 Unknown Rx Dicyclomine [Bentyl] 20 mg PO QID PRN #20 tablet 12/30/20 Unknown Rx Ondansetron [Zofran Odt] 4 mg PO Q8HR PRN #20 tab.rapdis 12/30/20 Unknown Rx Allergies Allergy/AdvReac Type Severity Reaction Status Date / Time lamotrigine [From Lamictal] Allergy Unknown Verified 12/22/20 14:46 Penicillins AdvReac Unknown Verified 12/22/20 14:46 ED Review of Systems ROS: Stated complaint: ABD PAINS Other details as noted in HPI Comment: All other systems reviewed and negative Constitutional: denies: chills, fever Gastrointestinal: abdominal pain, nausea, vomiting. denies: diarrhea ED Past Medical Hx - Past Medical History Previous Medical History?: Yes Hx Seizures: Yes Hx Psychiatric Treatment: Yes (Schizoaffective,drug abuse) Hx HIV: Yes (last , not on any meds) Additional medical history: HIV. neuropathy - Surgical History Past Surgical History?: Yes Additional Surgical History: TBI - Social History Smoking Status: Current Every Day Smoker - Medications Home Medications: Home Medications Medication Instructions Recorded Confirmed Last Taken Type ARIPiprazole [Abilify] 30 mg PO DAILY 12/06/18 09/02/19 12/05/18 History Divalproex Sodium [Depakote] 1,500 mg PO TID 12/06/18 09/02/19 12/05/18 History Gabapentin [Neurontin] 900 mg PO BID 12/06/18 09/02/19 12/05/18 History Petrolatum,White/Lanolin [[facility] 1 applic TP TID #42.5 oint...g. 01/01/19 09/02/19 Unknown Rx Multi-Purpose Ointment] Sulfamethoxazole/Trimethoprim 1 each PO BID #20 tablet 01/01/19 09/02/19 Unknown Rx [Bactrim Ds Tablet] Albuterol Sulfate [Proair 90 mcg IH Q4HR PRN #2 aer.pow.ba 03/08/19 09/02/19 Unknown Rx Respiclick] Benzonatate [Tessalon Perles] 100 mg PO Q8HR PRN #30 capsule 03/08/19 09/02/19 Unknown Rx Fluticasone [Flonase] 1 spray NS QDAY #1 bottle 03/08/19 09/02/19 Unknown Rx Dicyclomine [Bentyl] 20 mg PO QID PRN #20 tablet 12/30/20 Unknown Rx Ondansetron [Zofran Odt] 4 mg PO Q8HR PRN #20 tab.rapdis 12/30/20 Unknown Rx ED Physical Exam - General Limitations: No Limitations General appearance: alert, in no apparent distress - Head Head exam: Present: atraumatic, normocephalic - Eye Eye exam: Present: normal appearance, EOMI - ENT ENT exam: Present: mucous membranes moist - Neck Neck exam: Present: normal inspection - Respiratory Respiratory exam: Present: normal lung sounds bilaterally. Absent: respiratory distress - Cardiovascular Cardiovascular Exam: Present: regular rate, normal rhythm - GI/Abdominal GI/Abdominal exam: Present: soft. Absent: distended, tenderness - Extremities Exam Extremities exam: Present: normal inspection - Neurological Exam Neurological exam: Present: alert, oriented X3 - Psychiatric Psychiatric exam: Present: normal affect, normal mood - Skin Skin exam: Present: warm, dry, intact, normal color ED Course Vital Signs 12/29/20 12/30/20 12/30/20 23:43 08:46 09:00 Temperature 97.6 F Pulse Rate 99 H 103 H 96 H Respiratory 16 21 16 Rate Blood Pressure 123/80 109/66 109/66 Blood Pressure [Left] O2 Sat by Pulse 97 99 99 Oximetry 12/30/20 11:13 Temperature Pulse Rate 92 H Respiratory 18 Rate Blood Pressure Blood Pressure 110/64 [Left] O2 Sat by Pulse 100 Oximetry ED Medical Decision Making - Lab Data Result diagrams: 12/29/20 23:57 12/29/20 23:57 - Medical Decision Making 25-year-old male, history of HIV, schizoaffective disorder, alcohol abuse, presents to ED with abdominal pain and nausea after drinking alcohol and eating beef jerky. Patient reports history of alcohol abuse. On exam abdomen is benign. Vital signs are stable. Patient has had no emesis here in the ED. Labs are unremarkable, including lipase. Patient given GI cocktail and is feeling much better. Patient feels comfortable with discharge at this time. Outpatient follow-up advised, return precautions given. Patient counseled on alcohol abuse. - Differential Diagnosis Pancreatitis, gastritis, alcoholism Critical care attestation.: If time is entered above; I have spent that time in minutes in the direct care of this critically ill patient, excluding procedure time. ED Disposition Clinical Impression: Gastritis Disposition: DC-01 TO HOME OR SELFCARE Is pt being admited?: No Condition: Stable Instructions: Gastritis, Adult, [id number] Prescriptions: Dicyclomine [Bentyl] 20 mg PO QID PRN #20 tablet PRN Reason: abdominal pain Ondansetron [Zofran Odt] 4 mg PO Q8HR PRN #20 tab.rapdis PRN Reason: Vomiting Referrals: PRIMARY CARE,MD [Primary Care Provider] - 3-5 Days [facility] [Provider Group] - 3-5 Days [facility] [Provider Group] - 3-5 Days Time of Disposition: 10:18
[2020-12-30 11:14] VITALS: BP 110/64
== END 2020-12-30 11:24 | disposition home or self-care (01) ==
LOC: ED 21:44
DX: K29.70 Gastritis, unspecified, without bleeding (principal); R56.9 Unspecified convulsions; F17.200 Nicotine dependence, unspecified, uncomplicated; Z98.890 Other specified postprocedural states; Z79.899 Other long term (current) drug therapy; Z21 Asymptomatic human immunodeficiency virus [HIV] infection status; Z88.0 Allergy status to penicillin; Z88.8 Allergy status to other drugs, medicaments and biological substances
CPT/HCPCS: 36415; 80053; 83690; 85025

== ENCOUNTER 2021-04-19 22:08 | Emergency (ER) | payer MEDICAID ==
[2021-04-20 00:12] VITALS: BP 142/89
--- NOTE | 2021-04-20 03:19 | Emergency Department Report ---
- General Chief Complaint: Upper Respiratory Infection Stated Complaint: COLD Source: patient Mode of arrival: Ambulatory Limitations: No Limitations - History of Present Illness Initial Comments: Patient is a 25-year-old white male with a history of schizoaffective disorder, chronic neuropathy and seizures who presents to the ED with complaint of acute onset persistent nasal and sinus congestion, frontal sinus pressure, persistent cough with yellowish-green phlegm for the last 1 week, worse in the last 3 days. Patient states that he has not been able to sleep because of persistent cough with frontal sinus pressure. Patient states that a number of people in his house have had similar symptoms but adds that he has really been vaccinated with Covid19 vaccine. Patient denies fever, chills, nausea, vomiting, sore throat, dizziness, syncope, chest pain, shortness of breath, abdominal pain, diarrhea, dysuria, urinary frequency and urgency, or seizures. MD Complaint: cough, rhinorrhea, nasal congestion, sinus pain -: Sudden, week(s) (1) Severity: moderate Severity scale (0 -10): 4 Quality: sharp, aching Consistency: constant Improves With: nothing Worsens With: nothing Context: sick contacts Associated Symptoms: denies other symptoms, headache, rhinorrhea, nasal congestion, cough. denies: fever, myalgias, diaphoresis, sore throat, stiff n cher, chest pain, shortness of breath, abdominal pain, nausea, vomiting, diarrhea, dysuria, rash, right sweats, weight loss, epistaxis, hoarseness, other Treatments Prior to Arrival: none - Related Data Home Medications Medication Instructions Recorded Confirmed Last Taken ARIPiprazole [Abilify] 30 mg PO DAILY 12/06/18 09/02/19 12/05/18 Divalproex Sodium [Depakote] 1,500 mg PO TID 12/06/18 09/02/19 12/05/18 Gabapentin [Neurontin] 900 mg PO BID 12/06/18 09/02/19 12/05/18 Previous Rx's Medication Instructions Recorded Last Taken Type Petrolatum,White/Lanolin [[facility]vs 1 applic TP TID #42.5 oint...g. 01/01/19 Unknown Rx Multi-Purpose Ointment] Sulfamethoxazole/Trimethoprim 1 each PO BID #20 tablet 01/01/19 Unknown Rx [Bactrim Ds Tablet] Fluticasone [Flonase] 1 spray NS QDAY #1 bottle 03/08/19 Unknown Rx Dicyclomine [Bentyl] 20 mg PO QID PRN #20 tablet 12/30/20 Unknown Rx Ondansetron [Zofran Odt] 4 mg PO Q8HR PRN #20 tab.rapdis 12/30/20 Unknown Rx Albuterol Sulfate [Proair 90 mcg IH Q4HR PRN #2 aer.pow.ba 04/20/21 Unknown Rx Respiclick] Azithromycin [Zithromax Z-KENNETH] 250 mg PO DAILY #6 tablet 04/20/21 Unknown Rx Benzonatate [Tessalon Perles] 100 mg PO Q8HR PRN #30 capsule 04/20/21 Unknown Rx Cetirizine HCl [Zyrtec 10mg tab] 10 mg PO DAILY #30 tablet 04/20/21 Unknown Rx Allergies Allergy/AdvReac Type Severity Reaction Status Date / Time lamotrigine [From Lamictal] Allergy Unknown Verified 04/20/21 00:11 Penicillins AdvReac Intermediate Unknown Verified 04/20/21 00:11 ED Review of Systems ROS: Stated complaint: COLD Other details as noted in HPI Constitutional: denies: chills, fever Eyes: denies: eye pain, eye discharge, vision change ENT: congestion, other (Frontal sinus pressure and pain). denies: ear pain, throat pain Respiratory: cough. denies: shortness of breath, wheezing Cardiovascular: denies: chest pain, palpitations Endocrine: no symptoms reported Gastrointestinal: denies: abdominal pain, nausea, diarrhea Genitourinary: denies: urgency, dysuria Musculoskeletal: denies: back pain, joint swelling, arthralgia Skin: denies: rash, lesions Neurological: denies: headache, weakness, paresthesias Psychiatric: denies: anxiety, depression Hematological/Lymphatic: denies: easy bleeding, easy bruising ED Past Medical Hx - Past Medical History Previous Medical History?: No Hx Seizures: Yes Hx Psychiatric Treatment: Yes (Schizoaffective,drug abuse) Hx HIV: Yes (last , not on any meds) Additional medical history: HIV. neuropathy. schizo affective disorder - Surgical History Additional Surgical History: TBI - Social History Smoking Status: Never Smoker Substance Use Type: None - Medications Home Medications: Home Medications Medication Instructions Recorded Confirmed Last Taken Type ARIPiprazole [Abilify] 30 mg PO DAILY 12/06/18 09/02/19 12/05/18 History Divalproex Sodium [Depakote] 1,500 mg PO TID 12/06/18 09/02/19 12/05/18 History Gabapentin [Neurontin] 900 mg PO BID 12/06/18 09/02/19 12/05/18 History Petrolatum,White/Lanolin [[facility]vs 1 applic TP TID #42.5 oint...g. 01/01/19 09/02/19 Unknown Rx Multi-Purpose Ointment] Sulfamethoxazole/Trimethoprim 1 each PO BID #20 tablet 01/01/19 09/02/19 Unknown Rx [Bactrim Ds Tablet] Fluticasone [Flonase] 1 spray NS QDAY #1 bottle 03/08/19 09/02/19 Unknown Rx Dicyclomine [Bentyl] 20 mg PO QID PRN #20 tablet 12/30/20 Unknown Rx Ondansetron [Zofran Odt] 4 mg PO Q8HR PRN #20 tab.rapdis 12/30/20 Unknown Rx Albuterol Sulfate [Proair 90 mcg IH Q4HR PRN #2 aer.pow.ba 04/20/21 Unknown Rx Respiclick] Azithromycin [Zithromax Z-KENNETH] 250 mg PO DAILY #6 tablet 04/20/21 Unknown Rx Benzonatate [Tessalon Perles] 100 mg PO Q8HR PRN #30 capsule 04/20/21 Unknown Rx Cetirizine HCl [Zyrtec 10mg tab] 10 mg PO DAILY #30 tablet 04/20/21 Unknown Rx ED Physical Exam - General Limitations: No Limitations General appearance: alert, in no apparent distress - Head Head exam: Present: atraumatic, normocephalic, normal inspection - Eye Eye exam: Present: normal appearance, PERRL, EOMI Pupils: Present: normal accommodation - ENT ENT exam: Present: normal orophraynx, mucous membranes moist, TM's normal bilaterally, normal external ear exam, other (Grossly congested nasal passages; palpable frontal sinus tenderness) - Neck Neck exam: Present: normal inspection, full ROM. Absent: tenderness - Respiratory Respiratory exam: Present: normal lung sounds bilaterally. Absent: respiratory distress, wheezes, rales, stridor, chest wall tenderness, accessory muscle use, decreased breath sounds, prolonged expiratory - Cardiovascular Cardiovascular Exam: Present: normal rhythm, tachycardia, normal heart sounds. Absent: systolic murmur, diastolic murmur, rubs, gallop - GI/Abdominal GI/Abdominal exam: Present: soft, normal bowel sounds. Absent: tenderness, guarding, rebound, hyperactive bowel sounds, hypoactive bowel sounds, organomegaly - Extremities Exam Extremities exam: Present: normal inspection, full ROM, normal capillary refill - Back Exam Back exam: Present: normal inspection, full ROM. Absent: tenderness, CVA tenderness (L), muscle spasm, paraspinal tenderness - Neurological Exam Neurological exam: Present: alert, oriented X3, CN II-XII intact, normal gait, reflexes normal - Psychiatric Psychiatric exam: Present: normal affect, normal mood, anxious - Skin Skin exam: Present: warm, dry, intact, normal color. Absent: rash ED Course Vital Signs 04/20/21 00:08 Temperature 98.3 F Pulse Rate 116 H Respiratory 18 Rate Blood Pressure 142/89 O2 Sat by Pulse 98 Oximetry ED Medical Decision Making - Medical Decision Making This is a 25-year-old white male with a history of schizoaffective disorder, chronic neuropathy and seizures who presents to the ED with complaint of acute onset persistent nasal and sinus congestion, frontal sinus pressure, persistent cough with yellowish-green phlegm for the last 1 week, worse in the last 3 days. Patient states that he has not been able to sleep because of persistent cough with frontal sinus pressure. Patient states that a number of people in his house have had similar symptoms but adds that he has really been vaccinated with Covid19 vaccine. In the ED, patient is alert and oriented x3 and is not in any distress but appears anxious, afebrile and tachycardic in triage. Based on the history and and physical exam findings, the patient was discharged home on medications for suspected sinusitis, URI or bronchitis. Patient was advised to follow-up with his primary care physician in 5 to 7 days for reevaluation. Patient is advised return to the ED immediately if symptoms get worse. - Differential Diagnosis Sinusitis; URI; bronchitis; viral syndrome Critical care attestation.: If time is entered above; I have spent that time in minutes in the direct care of this critically ill patient, excluding procedure time. ED Disposition Clinical Impression: Acute upper respiratory infection, Acute bronchitis, bacterial Acute frontal sinusitis, unspecified Qualifiers: Recurrence: non-recurrent Qualified Code(s): J01.10 - Acute frontal sinusitis, unspecified Disposition: DC- TO HOME OR SELFCARE Is pt being admited?: No Does the pt Need Aspirin: No Condition: Stable Instructions: Acute Bronchitis (ED), Sinusitis, Adult, [id number], Upper Respiratory Infection, Adult, [id number], Acute Bronchitis, Adult, [id number] Additional Instructions: Take medication with food, drink plenty of fluids and follow-up with your primary care physician in 5 to 7 days for reevaluation. Return to the ED immediately if symptoms get worse. Prescriptions: Albuterol Sulfate [Proair Respiclick] 90 mcg IH Q4HR PRN #2 aer.pow.ba PRN Reason: Wheezing Benzonatate [Tessalon Perles] 100 mg PO Q8HR PRN #30 capsule PRN Reason: Cough Azithromycin [Zithromax Z-KENNETH] 250 mg PO DAILY #6 tablet Cetirizine HCl [Zyrtec 10mg tab] 10 mg PO DAILY #30 tablet Referrals: [facility] [Provider Group] - 3-5 Days Time of Disposition: 03:18 Print Language: WOLOF
== END 2021-04-20 04:54 | disposition home or self-care (01) ==
LOC: ED 22:08
DX: J01.10 Acute frontal sinusitis, unspecified (principal); J20.9 Acute bronchitis, unspecified; F25.9 Schizoaffective disorder, unspecified
CPT/HCPCS: 99281

== ENCOUNTER 2021-04-22 06:31 | Emergency (ER) | payer MEDICAID | END 2021-04-22 07:46 | disposition left against medical advice (07) | LOC: ED 06:31 | DX: Z53.21 Procedure and treatment not carried out due to patient leaving prior to being seen by health care provider (principal) ==

== ENCOUNTER 2021-11-11 13:08 | Emergency (ER) | payer BC, MEDICAID ==
[2021-11-11 19:48] LABS: Basophils % (Auto) 0.2 % (0.0-1.8); Eosinophils # (Auto) 0.2 K/mm3 (0.0-0.4); Eosinophils % (Auto) 3.7 % (0.0-4.3); Hematocrit 40.4 % (35.5-45.6); Hemoglobin 12.9 gm/dl (11.8-15.2); Lymphocytes # (Auto) 1.2 K/mm3 (1.2-5.4); Lymphocytes % (Auto) 22.2 % (13.4-35.0); Mean Corpuscular HGB Conc 32 % (32-34); Mean Corpuscular Volume 87 fl (84-94); Monocytes # (Auto) 0.5 K/mm3 (0.0-0.8); Monocytes % (Auto) 8.8 % (0.0-7.3); Red Blood Count 4.66 M/mm3 (3.65-5.03); Red Cell Distribution Width 15.7 % (13.2-15.2)
[2021-11-11 19:54] LABS: Platelet Count 47 K/mm3 (140-440)
[2021-11-11 20:07] LABS: Alanine Aminotransferase 28 units/L (7-56); Albumin 3.9 g/dL (3.9-5); BUN/Creatinine Ratio 11; Blood Urea Nitrogen 9 mg/dL (9-20); Calcium 8.6 mg/dL (8.4-10.2); Hemolysis Index 12
[2021-11-12 12:25] VITALS: BP 114/70
== END 2021-11-12 12:35 | disposition still patient (30) ==
LOC: ED 13:08
DX: R45.851 Suicidal ideations (principal); G89.29 Other chronic pain; M79.604 Pain in right leg; Z20.822 Contact with and (suspected) exposure to COVID-19; M79.605 Pain in left leg; F20.9 Schizophrenia, unspecified; Z72.89 Other problems related to lifestyle; Z88.0 Allergy status to penicillin; Z88.8 Allergy status to other drugs, medicaments and biological substances; Z79.899 Other long term (current) drug therapy
CPT/HCPCS: 36415; 80053; 85025; 99283; U0003; 80320; G0480

== ENCOUNTER 2021-11-26 20:22 | Emergency (ER) | payer MEDICAID ==
--- NOTE | 2021-11-26 21:47 | Emergency Department Report ---
HPI - General Chief Complaint: Psych Time Seen by Provider: 11/26/21 21:23 - HPI HPI: Room 16 The patient is a 26-year-old male present with a chief complaint of threatening behavior/suicidal ideation. [place]reats of bombing and threats of harm himself. The patient has a history of schizoaffective disorder is a poor historian. When asked about what made him come to the emergency department the patient exhibits rambling speech most of which is nonsensical. At 1 point the patient stated "I just pulled the fire alarm so that..." And then he just trails off. Most of his speech is unintelligible ED Past Medical Hx - Past Medical History Previous Medical History?: Yes Hx Seizures: Yes Hx Psychiatric Treatment: Yes (Schizoaffective,drug abuse, bipolar) Hx HIV: Yes (last , not on any meds) Additional medical history: HIV. neuropathy. schizo affective disorder - Surgical History Past Surgical History?: Yes Additional Surgical History: TBI - Family History Family history: no significant - Social History Smoking Status: Unknown if ever smoked Substance Use Type: None - Medications Home Medications: Home Medications Medication Instructions Recorded Confirmed Last Taken Type ARIPiprazole [Abilify] 30 mg PO DAILY 12/06/18 09/02/19 12/05/18 History Divalproex Sodium [Depakote] 1,500 mg PO TID 12/06/18 09/02/19 12/05/18 History Gabapentin [Neurontin] 900 mg PO BID 12/06/18 09/02/19 12/05/18 History Petrolatum,White/Lanolin [[facility] 1 applic TP TID #42.5 oint...g. 01/01/19 09/02/19 Unknown Rx Multi-Purpose Ointment] Sulfamethoxazole/Trimethoprim 1 each PO BID #20 tablet 01/01/19 09/02/19 Unknown Rx [Bactrim Ds Tablet] Fluticasone [Flonase] 1 spray NS QDAY #1 bottle 03/08/19 09/02/19 Unknown Rx Dicyclomine [Bentyl] 20 mg PO QID PRN #20 tablet 12/30/20 Unknown Rx Ondansetron [Zofran Odt] 4 mg PO Q8HR PRN #20 tab.rapdis 12/30/20 Unknown Rx Albuterol Sulfate [Proair 90 mcg IH Q4HR PRN #2 aer.[email or web address] 04/20/21 Unknown Rx Respiclick] Azithromycin [Zithromax Z-KENNETH] 250 mg PO DAILY #6 tablet 04/20/21 Unknown Rx Benzonatate [Tessalon Perles] 100 mg PO Q8HR PRN #30 capsule 04/20/21 Unknown Rx Cetirizine HCl [Zyrtec 10mg tab] 10 mg PO DAILY #30 tablet 04/20/21 Unknown Rx ED Review of Systems ROS: Stated complaint: MH EVAL/HOMICIDAL Other details as noted in HPI Comment: Unobtainable due to pts medical conditions Physical Exam - Physical Exam Vital Signs: Vital Signs 11/26/21 20:48 Temperature 98.6 F Pulse Rate 115 H Respiratory 20 Rate Blood Pressure 146/68 O2 Sat by Pulse 98 Oximetry Physical Exam: GENERAL: The patient is well-developed well-nourished male sitting in chair with rambling speech not appearing to be in acute distress. [] HEENT: Normocephalic. Atraumatic. Extraocular motions are intact. Patient has moist mucous membranes. NECK: Supple. Trachea midline CHEST/LUNGS: Clear to auscultation. There is no respiratory distress noted. HEART/CARDIOVASCULAR: Regular. There is no tachycardia. There is no gallop rub or murmur. ABDOMEN: Abdomen is soft, nontender. Patient has normal bowel sounds. There is no abdominal distention. SKIN: There is no rash. There is no edema. There is no diaphoresis. NEURO: The patient is awake and alert. The patient exhibits rambling speech. The patient is cooperative. The patient has no focal neurologic deficits. The patient has rambling/mumbling speech MUSCULOSKELETAL: There is no evidence of acute injury. ED Course Vital Signs 11/26/21 20:48 Temperature 98.6 F Pulse Rate 115 H Respiratory 20 Rate Blood Pressure 146/68 O2 Sat by Pulse 98 Oximetry ED Medical Decision Making - Lab Data Result diagrams: 11/26/21 21:48 11/26/21 21:48 - Differential Diagnosis Schizoaffective disorder, substance abuse Critical care attestation.: If time is entered above; I have spent that time in minutes in the direct care of this critically ill patient, excluding procedure time. ED Disposition Clinical Impression: Substance induced mood disorder, Schizophrenia Disposition: 01 HOME / SELF CARE / HOMELESS Is pt being admited?: No Does the pt Need Aspirin: No Condition: Stable Instructions: Substance Use Disorder and Mental Illness, Schizophrenia Additional Instructions: OUTPATIENT MENTAL HEALTH RESOURCES [facility], [facility] Brennen Young MD: [address] [place] [address] [place] [address] [place] [address] [facility]: [employer] [address] [place] [address] [place] [address] [phone] [facility] ([place], [place]) [facility]: [facility]: [address] [facility] [place] [address] [facility] [id number] [facility]: Daniel Meraz MD: [id number] [facility] [id number] [facility]: [address] [place], [place] [id number] [phone] [place] CRISIS AND ACCESS LINE: Referrals: DASHA ZEPEDA MD [Primary Care Provider] - 3-5 Days
[2021-11-26 22:28] LABS: Basophils % (Auto) 0.2 % (0.0-1.8); Eosinophils # (Auto) 0.1 K/mm3 (0.0-0.4); Eosinophils % (Auto) 0.5 % (0.0-4.3); Hematocrit 43.4 % (35.5-45.6); Hemoglobin 13.7 gm/dl (11.8-15.2); Lymphocytes # (Auto) 1.9 K/mm3 (1.2-5.4); Lymphocytes % (Auto) 17.4 % (13.4-35.0); Mean Corpuscular HGB Conc 32 % (32-34); Mean Corpuscular Volume 86 fl (84-94); Monocytes # (Auto) 0.8 K/mm3 (0.0-0.8); Monocytes % (Auto) 7.1 % (0.0-7.3); Red Blood Count 5.05 M/mm3 (3.65-5.03); Red Cell Distribution Width 16.4 % (13.2-15.2)
[2021-11-26 22:29] LABS: Platelet Count 39 K/mm3 (140-440)
[2021-11-26] MEDS ORDERED: HALOPERIDOL LACTATE 5 MG/1 ML INJ IM PRN (22:33)
[2021-11-26] MEDS ORDERED: diphenhydrAMINE 50 MG/ML VIAL IM PRN (22:33)
[2021-11-26] MEDS ORDERED: LORazepam 2 MG/ML VIAL IM PRN (22:33)
[2021-11-26 22:43] LABS: BUN/Creatinine Ratio 32; Blood Urea Nitrogen 32 mg/dL (9-20); Calcium 9.4 mg/dL (8.4-10.2); Hemolysis Index 142
[2021-11-27 08:51] LABS: Bilirubin,Urine NEG (Negative); Blood,Urine NEG (Negative); Color,Urine Yellow (Yellow); Mucus,Urine 3+ /HPF; Protein,Urine <15 mg/dL mg/dL (Negative)
[2021-11-27 08:56] LABS: Benzodiazepines Screen,Urine Negative; Cannabinoid Screen,Urine Negative; Methadone Screen,Urine Negative; Opiate Screen,Urine Negative
[2021-11-27 09:41] LABS: Amphetamine Screen,Urine Positive; Cocaine Screen,Urine Positive
--- NOTE | 2021-11-27 10:17 | Progress Note ---
Subjective - Reason for Consult Consult date: 11/27/21 Reason for consult: seeing things - Chief Complaint Chief complaint: The patient was seen today. He is a known patient to me. He says he was brought by the ambulance because he thought he saw a terrorist. He is calm, and cooperative. He is drowsy and having difficulty staying awake. He denies SI/HI. He also denies hallucinations at present. The patient says "I don't know" when asking him had he done any drugs. REVIEW OF SYSTEMS Constitutional: Negative for weight loss ENT: Negative for stridor Respiratory: Negative for cough or hemoptysis All other systems reviewed and are negative MENTAL STATUS EXAMINATION General Appearance and Behavior: Age appropriate, good hygiene, wearing appropriate clothes, calm and cooperative, drowsy Cooperation: Guarded, uncooperative Psychomotor Behavior: Psychomotor normal Mood: I don't know Affect and affective range: restricted Thought Process: circumstantial Thought Content: None Speech: Normal rate, volume and rhythm Suicidal Ideation: Denies Homicidal Ideation: Denies Hallucinations: Denies Delusions: None elicited Impulse Control: limited Insight and Judgment: Limited insight and judgment Memory: Normal Attention: drowsy Orientation: oriented, but drowsy Assessment and Plan (1) 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 Will sign off. Thanks Case staffed with Dr. Sheldon. Mental Status Exam - Vital signs Last Vital Signs Temp 97.5 F L 11/27/21 03:08 Pulse 76 11/27/21 03:08 Resp 16 11/27/21 03:08 BP 100/53 11/27/21 03:08 Pulse Ox 98 11/27/21 03:08
--- NOTE | 2021-11-27 12:31 | Emergency Department Report ---
Blank Doc - Documentation Documentation: 26-year-old male brought in with acute psychosis with terrorist threats and scherer icidal ideation. Patient required medication of Haldol, Benadryl, and Ativan upon arrival. UDS positive cocaine and amphetamines. Patient evaluated by mental health this morning and calm and cooperative with denial of suicidal and homicidal ideation. Patient cleared for discharge for substance induced mood disorder and schizophrenia
[2021-11-27 13:10] VITALS: BP 110/60
== END 2021-11-27 13:12 | disposition home or self-care (01) ==
LOC: ED 20:22
DX: F19.94 Other psychoactive substance use, unspecified with psychoactive substance-induced mood disorder (principal); Z20.822 Contact with and (suspected) exposure to COVID-19
CPT/HCPCS: 36415; 80048; 80307; 81001; 85025; 96372; 99284; J1200; J1630; J2060; U0003; 80320; G0480